=== PATIENT | female | born 1935 | race African-American/Black ===

== ENCOUNTER 2017-11-10 15:38 | Emergency (ER) | payer MEDICARE ==
[2017-11-10 16:05] LABS: ADD MAN DIFF? NO
[2017-11-10 16:09] LABS: BASO # 0.1 x10^3/uL (0.0-0.2); BASO % 1 % (0-3); EOS # 0.1 x10^3/uL (0.0-0.7); EOS % 1 % (0-3); HEMATOCRIT 40.7 % (36.0-47.0); HEMOGLOBIN 13.2 g/dL (12.0-15.5); LYMPH # 2.2 x10^3/uL (1.0-4.8); LYMPH % 26 % (24-48); MEAN CORPUSCULAR HEMOGLOBIN 29 pg (25-35); MEAN CORPUSCULAR HGB CONC 33 g/dL (31-37); MEAN CORPUSCULAR VOLUME 90 fL (79-100); MONO % 11 % (0-9); NEUT # 5.3 x10^3uL (1.8-7.7); NEUT % 61 % (31-73); PLATELET COUNT 192 x10^3/uL (140-400); RED BLOOD COUNT 4.54 x10^6/uL (3.50-5.40); RED CELL DISTRIBUTION WIDTH 14.7 % (11.5-14.5); WHITE BLOOD COUNT 8.7 x10^3/uL (4.0-11.0)
[2017-11-10 16:27] LABS: ANION GAP 8 (6-14); BLOOD UREA NITROGEN 38 mg/dL (7-20); BUN/CREATININE RATIO 35 (6-20); CALCIUM 9.5 mg/dL (8.5-10.1); CARBON DIOXIDE 28 mmol/L (21-32); CHLORIDE 100 mmol/L (98-107); CREATININE 1.1 mg/dL (0.6-1.0); GFR 57.4; GLUCOSE 129 mg/dL (70-99); POTASSIUM 3.8 mmol/L (3.5-5.1); SODIUM 136 mmol/L (136-145)
[2017-11-10] MEDS: cloNIDine HCL 0.1 MG TABLET PO ×2 (16:28)
[2017-11-10 16:32] LABS: TROPONINI < 0.017 ng/mL (0.000-0.055)
[2017-11-10 16:33] LABS: ALBUMIN 3.9 g/dL (3.4-5.0); ALK PHOS 112 U/L (46-116); ALT (SGPT) 27 U/L (14-59); AST (SGOT) 24 U/L (15-37); TOTAL BILIRUBIN 0.4 mg/dL (0.2-1.0); TOTAL PROTEIN 7.9 g/dL (6.4-8.2)
[2017-11-10 16:49] LABS: BILIRUBIN,URINE NEGATIVE (NEG); CLARITY,URINE CLEAR; COLOR,URINE YELLOW; GLUCOSE,URINE NEGATIVE (NEG); NITRITE,URINE NEGATIVE (NEG); PROTEIN,URINE NEGATIVE (NEG-TRACE); UROBILINOGEN,URINE 0.2 mg/dL (0.2 mg/dL)
[2017-11-10 17:12] LABS: BACTERIA,URINE 0 /HPF (0-FEW); RBC,URINE OCC /HPF (0-2); SQUAMOUS EPITHELIAL CELL,UR FEW /LPF; WBC,URINE OCC /HPF (0-4)
== END 2017-11-10 17:59 | disposition home or self-care (01) ==
LOC: ER 15:38
DX: I10 Essential (primary) hypertension (principal); J34.89 Other specified disorders of nose and nasal sinuses; M19.90 Unspecified osteoarthritis, unspecified site; E78.00 Pure hypercholesterolemia, unspecified; Z90.710 Acquired absence of both cervix and uterus; Z88.0 Allergy status to penicillin
CPT/HCPCS: 36415; 80053; 81001; 84484; 85025; 93005; 99285-25

== ENCOUNTER → 2019-05-05 | Outpatient (CLI) | payer BC, MEDICARE ==
[2017-11-10 17:37] VITALS: BP 147/70
[~2019-05-05] MED LIST: AZIT250T PO
--- NOTE | 2019-05-05 11:12 | KCIC ---
Exam performed: X-ray lumbosacral spine. HISTORY: Chronic low back pain and bilateral leg pain. DATE OF SERVICE: 05/05/2019. Comparison made to a x-ray lumbosacral spine from June 16, 2009. FINDINGS: 5 nonrib-bearing vertebral bodies are identified. The vertebral body heights are maintained. There is narrowing of several intervertebral disc levels with mild diffuse osteophytic spurring. There is grade 1 anterolisthesis of L4 over L5, the remainder alignment appears preserved. There is no acute compression fracture. No prevertebral soft tissue swelling is identified. Nonspecific bowel gas pattern. 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 Grade 1 anterolisthesis of L4 over L5 likely degenerative. Electronically signed by: Heather Babin MD (05/05/2019 11:09 AM) [facility]
== END | disposition home or self-care (01) ==
LOC: KCIC 10:21
PROVIDERS: ATTEND Nurse Practitioner Gerontology
DX: M47.26 Other spondylosis with radiculopathy, lumbar region (principal); M51.86 Other intervertebral disc disorders, lumbar region; G89.29 Other chronic pain
CPT/HCPCS: 72100

== ENCOUNTER 2019-05-13 05:05 | Inpatient (IN) | payer BC ==
[~2019-05-13] VITALS: Ht 177.8 cm; Wt 74.8 kg
[2019-05-13] VITALS (9 sets, daily range): BP systolic 114–147; BP diastolic 68–83
[2019-05-13 08:15] LABS: ALBUMIN 3.4 g/dL (3.4-5.0); CALCIUM 9.9 mg/dL (8.5-10.1); CREATININE 1.4 mg/dL (0.6-1.0); DIRECT BILIRUBIN 0.2 mg/dL (0.0-0.2); GFR 43.2; POTASSIUM 3.7 mmol/L (3.5-5.1); TOTAL BILIRUBIN 0.7 mg/dL (0.2-1.0); TOTAL PROTEIN 6.7 g/dL (6.4-8.2)
[2019-05-13] MEDS ORDERED: PIPERACILLIN/TAZOBACTAM 4.5 GM in IV NORMAL SALINE 100ML 100 ML IV ONE (08:15)
[2019-05-13] MEDS ORDERED: ONDANSETRON PF 4 MG/2 ML VIAL. IV ONE (08:15)
[2019-05-13] MEDS ORDERED: IV NORMAL SALINE 500ML BAG 500 ML IV ONE (08:15)
[2019-05-13] MEDS ORDERED: MORPHINE SULFATE 4 MG/ML VIAL. IV ONE (08:15)
[2019-05-13] MEDS ORDERED: fentaNYL PF VIAL 100 MCG/2 ML VIAL IV ONE (08:15)
[2019-05-13] MEDS ORDERED: IV RINGERS,LACTATED 1000ML 1,000 ML IV SCH (08:16)
--- NOTE | 2019-05-13 08:29 | EKG ---
[facility] [address] [place] [address] Test Date: 2019-05-13 Test Time: 05:07:38 Pat Name: MODE SAMUEL Department: Room: Gender: F [employer]: : 1935 Requested By: SHELIA ZAPATA Order Number: [id number] Reading MD: Measurements Intervals [place] Rate: 113 P: 64 MO: 130 QRS: 45 QRSD: 92 T: 62 QT: 320 QTc: 444 Interpretive Statements SINUS TACHYCARDIA VENTRICULAR PREMATURE COMPLEX(ES) LEFT ATRIAL ABNORMALITY INCOMPLETE RIGHT BUNDLE BRANCH BLOCK ABNORMAL ECG No previous ECG available for comparison
[2019-05-13 08:30] LABS: PROTHROMBIN TIME PATIENT 13.7 SEC (11.7-14.0)
[2019-05-13] MEDS ORDERED: ONDANSETRON PF 4 MG/2 ML VIAL. IV PRN (08:30)
[2019-05-13] MEDS ORDERED: LIDOCAINE 1% PF 2 ML VIAL. ID PRN (08:30)
[2019-05-13] MEDS ORDERED: MORPHINE SULFATE 2 MG/ML VIAL. IV PRN (08:30)
[2019-05-13] MEDS ORDERED: HYDROmorphone 2 MG/ML VIAL IV PRN (08:30)
[2019-05-13] MEDS ORDERED: fentaNYL PF VIAL 100 MCG/2 ML VIAL IV PRN ×2 (08:30)
[2019-05-13] MEDS ORDERED: PROCHLORPERAZINE 10 MG/2 ML VIAL. IV PRN (08:30)
[2019-05-13 08:31] LABS: BASO % 0 % (0-3); EOS % 0 % (0-3); HEMATOCRIT 43.3 % (36.0-47.0); HEMOGLOBIN 14.1 g/dL (12.0-15.5); LYMPH # 2.9 x10^3/uL (1.0-4.8); LYMPH % 23 % (24-48); MEAN CORPUSCULAR HEMOGLOBIN 30 pg (25-35); MEAN CORPUSCULAR HGB CONC 33 g/dL (31-37); MEAN CORPUSCULAR VOLUME 91 fL (79-100); MONO # 0.3 x10^3/uL (0.0-1.1); MONO % 2 % (0-9); NEUT # 9.2 x10^3/uL (1.8-7.7); NEUT % 74 % (31-73); PLATELET COUNT 276 x10^3/uL (140-400); RED BLOOD COUNT 4.77 x10^6/uL (3.50-5.40); WHITE BLOOD COUNT 12.4 x10^3/uL (4.0-11.0)
[2019-05-13] MEDS ORDERED: PROPOFOL 20 ML IV ONE (08:38)
[2019-05-13] MEDS ORDERED: fentaNYL PF VIAL 100 MCG/2 ML VIAL ONE (08:38)
[2019-05-13] MEDS ORDERED: ONDANSETRON PF 4 MG/2 ML VIAL. ONE (08:38)
[2019-05-13] MEDS ORDERED: LIDOCAINE 2% PF 5 ML VIAL. ONE (08:38)
[2019-05-13] MEDS ORDERED: DEXAMETHASONE SOD PHOS 4 MG/ML VIAL ONE (08:38)
[2019-05-13] MEDS ORDERED: SUCCINYLCHOLINE 200 MG/10 ML VIAL. ONE (08:39)
[2019-05-13] MEDS ORDERED: ROCURONIUM 100 MG/10 ML VIAL. ONE (08:39)
--- NOTE | 2019-05-13 08:52 | PDOC2 ---
CONSULT Date of Consult Date of Consult DATE: 05/13/19 TIME: 08:47 History of Present Illness Reason for Visit: The patient is an 84 year old female who reported to the ER due to abdominal pain. She has had vague abdominal and back pain for the last 2 weeks. Overnight the pain became severe and started in the chest and radiated down the abdomen. She denies nausea or vomiting. She denies changes in bowel or bladder function. Past Medical History Past Medical History hypertension, thyroid nodule Past Surgical History Past Surgical History hysterectomy, thyroidectomy Social History Quit ALCOHOL: none Current Medications Current Medications Current Medications Fentanyl Citrate (Fentanyl 2ml Vial) 50 mcg 1X ONCE IV ; Start 05/13/19 at 08:15; Stop 05/13/19 at 08:16; Status DC Ondansetron HCl (Zofran) 4 mg 1X ONCE IV ; Start 05/13/19 at 08:15; Stop 05/13/19 at 08:16; Status DC Sodium Chloride 500 ml @ 500 mls/hr 1X ONCE IV ; Start 05/13/19 at 08:15; Stop 05/13/19 at 09:14 Morphine Sulfate (Morphine Sulfate) 4 mg 1X ONCE IV ; Start 05/13/19 at 08:15; Stop 05/13/19 at 08:16; Status DC Piperacillin Sod/ Tazobactam Sod 4.5 gm/Sodium Chloride 100 ml @ 200 mls/hr 1X ONCE IV ; Start 05/13/19 at 08:15; Stop 05/13/19 at 08:44 Ondansetron HCl (Zofran) 4 mg PRN Q6HRS PRN IV NAUSEA/VOMITING; Start 05/13/19 at 08:30; Stop 05/14/19 at 08:29 Fentanyl Citrate (Fentanyl 2ml Vial) 25 mcg PRN Q5MIN PRN IV MILD PAIN 1-3; Start 05/13/19 at 08:30; Stop 05/14/19 at 08:29 Fentanyl Citrate (Fentanyl 2ml Vial) 50 mcg PRN Q5MIN PRN IV MODERATE TO SEVERE PAIN; Start 05/13/19 at 08:30; Stop 05/14/19 at 08:29 Morphine Sulfate (Morphine Sulfate) 1 mg PRN Q10MIN PRN IV SEVERE PAIN 7-10; Start 05/13/19 at 08:30; Stop 05/14/19 at 08:29 Ringer's Solution 1,000 ml @ 30 mls/hr Q24H IV ; Start 05/13/19 at 08:16; Stop 05/13/19 at 20:15 Lidocaine HCl (Xylocaine-Mpf 1% 2ml Vial) 2 ml 1X PRN PRN ID IV START; Start 05/13/19 at 08:30; Stop 05/14/19 at 08:29 Hydromorphone HCl (Dilaudid) 0.5 mg PRN Q10MIN PRN IV SEV PAIN, Second choice; Start 05/13/19 at 08:30; Stop 05/14/19 at 08:29 Prochlorperazine Edisylate (Compazine) 5 mg PACU PRN PRN IV NAUSEA, MRX1; Start 05/13/19 at 08:30; Stop 05/14/19 at 08:29 Ondansetron HCl (Zofran) 4 mg STK-MED ONCE .ROUTE ; Start 05/13/19 at 08:38; Stop 05/13/19 at 08:38; Status DC Propofol 20 ml @ As Directed STK-MED ONCE IV ; Start 05/13/19 at 08:38; Stop 05/13/19 at 08:38; Status DC Lidocaine HCl (Lidocaine Pf 2% Vial) 5 ml STK-MED ONCE .ROUTE ; Start 05/13/19 at 08:38; Stop 05/13/19 at 08:38; Status DC Dexamethasone Sodium Phosphate (Decadron) 4 mg STK-MED ONCE .ROUTE ; Start 05/13/19 at 08:38; Stop 05/13/19 at 08:38; Status DC Fentanyl Citrate (Fentanyl 2ml Vial) 100 mcg STK-MED ONCE .ROUTE ; Start 05/13/19 at 08:38; Stop 05/13/19 at 08:38; Status DC Rocuronium [place] (Zemuron) 100 mg STK-MED ONCE .ROUTE ; Start 05/13/19 at 08:39; Stop 05/13/19 at 08:39; Status DC Succinylcholine Chloride (Anectine) 200 mg STK-MED ONCE .ROUTE ; Start 05/13/19 at 08:39; Stop 05/13/19 at 08:39; Status DC Active Scripts Active Zithromax (Azithromycin) 250 Mg Tablet 1 Pkg PO UD Allergies Allergies: Coded Allergies: Penicillins (Verified Allergy, Intermediate, 05/13/19) PT DOESN'T KNOW REACTION, FROM CHILDHOOD ROS General: No: Chills, Night Sweats, Fatigue, Malaise, Appetite, Other PSYCHOLOGICAL ROS: No: Anxiety, Behavioral Disorder, Concentration difficultie, Decreased libido, Depression, Disorientation, Hallucinations, Hostility, Irritablity, Memory difficulties, Mood Swings, Obsessive thoughts, Physical abuse, Sexual abuse, Sleep disturbances, Suicidal ideation, Other Eyes: No Blurry vision, No Decreased vision, No Double vision, No Dry eyes, No Excessive tearing, No Eye Pain, No Itchy Eyes, No Loss of vision, No Photophobia, No Scotomata, No Uses contacts, No Uses glasses, No Other HEENT: No: Heacaches, Visual Changes, Hearing change, Nasal congestion, Nasal discharge, Oral lesions, Sinus pain, Sore Throat, Epistaxis, Sneezing, Snoring, Tinnitus, Vertigo, Vocal changes, Other ALLERGY AND IMMUNOLOGY: No: Hives, Insect Bite Sensitivity, Itchy/Watery Eyes, Nasal Congestion, Post Nasal Drip, Seasonal Allergies, Other Hematological and Lymphatic: No: Bleeding Problems, Blood Clots, Blood Transfusions, Brusing, Night Sweats, Pallor, Swollen Lymph Nodes, Other ENDOCRINE: No: Breast Changes, Galactorrhea, Hair Pattern Changes, Hot Flashes, Malaise/lethargy, Mood Swings, Palpitations, Polydipsia/polyuria, Skin Changes, Temperature Intolerance, Unexpected Weight Changes, Other Respiratory: No: Cough, Hemoptysis, Orthopnea, Pleuritic Pain, Shortness of breath, SOB with excertion, Sputum Changes, Stridor, Tachypnea, Wheezing, Other Cardiovascular: yes Chest Pain Gastrointestinal: Yes Abdominal Pain Genitourinary: No Dysuria, No Frequency, No Incontinence, No Hematuria, No Retention, No Discharge, No Urgency, No Pain, No Flank Pain, No Other, No , No , No , No , No , No , No Musculoskeletal: No Gait Disturbance, No Joint Pain, No Joint Stiffness, No Joint Swelling, No Muscle Pain, No Muscular Weakness, No Pain In:, No Swelling In:, No Other Neurological: No Behavorial Changes, No Bowel/Bladder ControlChng, No Confusion, No Dizziness, No Gait Disturbance, No Headaches, No Impaired Coord/balance, No Memory Loss, No Numbness/Tingling, No Seizures, No Speech Problems, No Tremors, No Visual Changes, No Weakness, No Other Skin: No Dry Skin, No Eczema, No Hair Changes, No Lumps, No Mole Changes, No Mottling, No Nail Changes, No Pruritus, No Rash, No Skin Lesion Changes, No Other, No Acne Physical Exam General: Alert, moderate distress HEENT: Atraumatic Lungs: Clear to auscultation Heart: Regular rate Abdomen: Soft (tender diffusely, peritoneal signs present) Extremities: No clubbing, No cyanosis Skin: No rashes Neuro: Normal speech Psych/Mental Status: Mental status NL Labs Labs Laboratory Tests Test 05/13/19 05:15 05/13/19 07:10 White Blood Count 12.4 x10^3/uL (4.0-11.0) Red Blood Count 4.77 x10^6/uL (3.50-5.40) Hemoglobin 14.1 g/dL (12.0-15.5) Hematocrit 43.3 % (36.0-47.0) Mean Corpuscular Volume 91 fL (79-100) Mean Corpuscular Hemoglobin 30 pg (25-35) Mean Corpuscular Hemoglobin Concent 33 g/dL (31-37) Red Cell Distribution Width 15.0 % (11.5-14.5) Platelet Count 276 x10^3/uL (140-400) Neutrophils (%) (Auto) 74 % (31-73) Lymphocytes (%) (Auto) 23 % (24-48) Monocytes (%) (Auto) 2 % (0-9) Eosinophils (%) (Auto) 0 % (0-3) Basophils (%) (Auto) 0 % (0-3) Neutrophils # (Auto) 9.2 x10^3/uL (1.8-7.7) Lymphocytes # (Auto) 2.9 x10^3/uL (1.0-4.8) Monocytes # (Auto) 0.3 x10^3/uL (0.0-1.1) Eosinophils # (Auto) 0.0 x10^3/uL (0.0-0.7) Basophils # (Auto) 0.0 x10^3/uL (0.0-0.2) Prothrombin Time 13.7 SEC (11.7-14.0) Prothromb Time International Ratio 1.1 (0.8-1.1) Activated Partial Thromboplast Time 20 SEC (24-38) Sodium Level 137 mmol/L (136-145) Potassium Level 3.7 mmol/L (3.5-5.1) Chloride Level 99 mmol/L (98-107) Carbon Dioxide Level 28 mmol/L (21-32) Anion Gap 10 (6-14) Blood Urea Nitrogen 30 mg/dL (7-20) Creatinine 1.4 mg/dL (0.6-1.0) Estimated GFR (Cockcroft-Gault) 43.2 Glucose Level 208 mg/dL (70-99) Calcium Level 9.9 mg/dL (8.5-10.1) Total Bilirubin 0.7 mg/dL (0.2-1.0) Direct Bilirubin 0.2 mg/dL (0.0-0.2) Aspartate Amino Transf (AST/SGOT) 19 U/L (15-37) Alanine Aminotransferase (ALT/SGPT) 29 U/L (14-59) Alkaline Phosphatase 69 U/L (46-116) Troponin I Quantitative < 0.017 ng/mL (0.000-0.055) ZK-Pii-M-Type Natriuretic Peptide 336 pg/mL (0-449) Total Protein 6.7 g/dL (6.4-8.2) Albumin 3.4 g/dL (3.4-5.0) Lipase 382 U/L (73-393) Lactic Acid Level 2.7 mmol/L (0.4-2.0) Laboratory Tests Test 05/13/19 05:15 05/13/19 07:10 White Blood Count 12.4 x10^3/uL (4.0-11.0) Red Blood Count 4.77 x10^6/uL (3.50-5.40) Hemoglobin 14.1 g/dL (12.0-15.5) Hematocrit 43.3 % (36.0-47.0) Mean Corpuscular Volume 91 fL (79-100) Mean Corpuscular Hemoglobin 30 pg (25-35) Mean Corpuscular Hemoglobin Concent 33 g/dL (31-37) Red Cell Distribution Width 15.0 % (11.5-14.5) Platelet Count 276 x10^3/uL (140-400) Neutrophils (%) (Auto) 74 % (31-73) Lymphocytes (%) (Auto) 23 % (24-48) Monocytes (%) (Auto) 2 % (0-9) Eosinophils (%) (Auto) 0 % (0-3) Basophils (%) (Auto) 0 % (0-3) Neutrophils # (Auto) 9.2 x10^3/uL (1.8-7.7) Lymphocytes # (Auto) 2.9 x10^3/uL (1.0-4.8) Monocytes # (Auto) 0.3 x10^3/uL (0.0-1.1) Eosinophils # (Auto) 0.0 x10^3/uL (0.0-0.7) Basophils # (Auto) 0.0 x10^3/uL (0.0-0.2) Prothrombin Time 13.7 SEC (11.7-14.0) Prothromb Time International Ratio 1.1 (0.8-1.1) Activated Partial Thromboplast Time 20 SEC (24-38) Sodium Level 137 mmol/L (136-145) Potassium Level 3.7 mmol/L (3.5-5.1) Chloride Level 99 mmol/L (98-107) Carbon Dioxide Level 28 mmol/L (21-32) Anion Gap 10 (6-14) Blood Urea Nitrogen 30 mg/dL (7-20) Creatinine 1.4 mg/dL (0.6-1.0) Estimated GFR (Cockcroft-Gault) 43.2 Glucose Level 208 mg/dL (70-99) Calcium Level 9.9 mg/dL (8.5-10.1) Total Bilirubin 0.7 mg/dL (0.2-1.0) Direct Bilirubin 0.2 mg/dL (0.0-0.2) Aspartate Amino Transf (AST/SGOT) 19 U/L (15-37) Alanine Aminotransferase (ALT/SGPT) 29 U/L (14-59) Alkaline Phosphatase 69 U/L (46-116) Troponin I Quantitative < 0.017 ng/mL (0.000-0.055) BR-Auq-N-Type Natriuretic Peptide 336 pg/mL (0-449) Total Protein 6.7 g/dL (6.4-8.2) Albumin 3.4 g/dL (3.4-5.0) Lipase 382 U/L (73-393) Lactic Acid Level 2.7 mmol/L (0.4-2.0) Assessment/Plan Assessment/Plan 84 year old female with abdominal pain, peritoneal signs, pneumoperitoneum on CT scan. Recommend operative intervention. I reviewed the details of surgery with the patient and her daughter including the risks. They understand and would like to proceed. VIDYA BEJARANO MD May 13, 2019 08:52
[2019-05-13] MEDS ORDERED: HYDROCORTISONE SOD SUCC/PF 100 MG/2 ML VIAL. ONE (08:55)
--- NOTE | 2019-05-13 09:02 | PHYS DOC ---
Past Medical History Past Medical History: Arthritis, High Cholesterol, Hypertension Past Surgical History: Hysterectomy, Other Additional Past Surgical Histo: THYROID Alcohol Use: None Drug Use: None Adult General Chief Complaint Chief Complaint: ABDOMINAL PAIN HPI HPI Patient is a 84 year old -[place] female presents with intermittent chest/back pain for 2 weeks presents with severe worsening of chest pain overnight now radiating to her abdomen. Denies shortness breath, fevers chills, nausea vomiting and sweats. Pain is rated moderate to severe respiratory palpation, movement. Exam, patient has a distended abdomen with mild diffuse tenderness. Patient states she has not had a bowel movement been able to pass gas for at least several hours. Remote history of hysterectomy. Denies further surgical complaints. [] Review of Systems Review of Systems Review of symptoms as per history of present illness. All other review symptoms are negative. All other systems were reviewed and found to be within normal limits, except as documented in this note. Current Medications Current Medications Current Medications Medications (Trade) Dose Ordered Sig/Simi Start Time Stop Time Status Last Admin Dose Admin Dexamethasone Sodium Phosphate (Decadron) 4 mg STK-MED ONCE 05/13/19 08:38 05/13/19 08:38 DC Fentanyl Citrate (Fentanyl 2ml Vial) 100 mcg STK-MED ONCE 05/13/19 08:38 05/13/19 08:38 DC Hydrocortisone Sodium Succinate (Solu-CORTEF) 100 mg STK-MED ONCE 05/13/19 08:55 05/13/19 08:55 DC Hydromorphone HCl (Dilaudid) 0.5 mg PRN Q10MIN PRN 05/13/19 08:30 05/14/19 08:29 Lidocaine HCl (Lidocaine Pf 2% Vial) 5 ml STK-MED ONCE 05/13/19 08:38 05/13/19 08:38 DC Lidocaine HCl (Xylocaine-Mpf 1% 2ml Vial) 2 ml 1X PRN PRN 05/13/19 08:30 05/14/19 08:29 Morphine Sulfate (Morphine Sulfate) 1 mg PRN Q10MIN PRN 05/13/19 08:30 05/14/19 08:29 Ondansetron HCl (Zofran) 4 mg STK-MED ONCE 05/13/19 08:38 05/13/19 08:38 DC Piperacillin Sod/ Tazobactam Sod 4.5 gm/Sodium Chloride 100 ml @ 200 mls/hr 1X ONCE 05/13/19 08:15 05/13/19 08:44 DC Prochlorperazine Edisylate (Compazine) 5 mg PACU PRN PRN 05/13/19 08:30 05/14/19 08:29 Propofol 20 ml @ As Directed STK-MED ONCE 05/13/19 08:38 05/13/19 08:38 DC Ringer's Solution 1,000 ml @ 30 mls/hr Q24H 05/13/19 08:16 05/13/19 20:15 Rocuronium [place] (Zemuron) 100 mg STK-MED ONCE 05/13/19 08:39 05/13/19 08:39 DC Sodium Chloride 500 ml @ 500 mls/hr 1X ONCE 05/13/19 08:15 05/13/19 09:14 Succinylcholine Chloride (Anectine) 200 mg STK-MED ONCE 05/13/19 08:39 05/13/19 08:39 DC Allergies Allergies Allergies Coded Allergies Type Severity Reaction Last Updated Verified Penicillins Allergy Intermediate 05/13/19 Yes Physical Exam Physical Exam Constitutional: Well developed, well nourished, moderate distress secondary to pain.. [] HENT: Normocephalic, atraumatic, bilateral external ears normal, oropharynx moist, nose normal. [] Eyes: PERRLA, EOMI, conjunctiva normal, no discharge. [] Neck: Normal range of motion, no tenderness, supple, no stridor. [] Cardiovascular:Heart rate regular rhythm, no murmur [] Lungs & Thorax: Bilateral breath sounds clear to auscultation [] Abdomen: Bowel sounds normal, soft, dated, quite bowel sounds, diffuse abdominal pain, tenderness.[] Skin: Warm, dry, no erythema, no rash. [] Back: No tenderness, no CVA tenderness. [] Extremities: No tenderness, no cyanosis, no clubbing, ROM intact, no edema. [] Neurologic: Alert and oriented X 3, normal motor function, normal sensory function, no focal deficits noted. [] Psychologic: Affect normal, judgement normal, mood normal. [] Current Patient Data Lab Values Laboratory Tests Test 05/13/19 05:15 05/13/19 07:10 White Blood Count 12.4 x10^3/uL (4.0-11.0) H Red Blood Count 4.77 x10^6/uL (3.50-5.40) Hemoglobin 14.1 g/dL (12.0-15.5) Hematocrit 43.3 % (36.0-47.0) Mean Corpuscular Volume 91 fL (79-100) Mean Corpuscular Hemoglobin 30 pg (25-35) Mean Corpuscular Hemoglobin Concent 33 g/dL (31-37) Red Cell Distribution Width 15.0 % (11.5-14.5) H Platelet Count 276 x10^3/uL (140-400) Neutrophils (%) (Auto) 74 % (31-73) H Lymphocytes (%) (Auto) 23 % (24-48) L Monocytes (%) (Auto) 2 % (0-9) Eosinophils (%) (Auto) 0 % (0-3) Basophils (%) (Auto) 0 % (0-3) Neutrophils # (Auto) 9.2 x10^3/uL (1.8-7.7) H Lymphocytes # (Auto) 2.9 x10^3/uL (1.0-4.8) Monocytes # (Auto) 0.3 x10^3/uL (0.0-1.1) Eosinophils # (Auto) 0.0 x10^3/uL (0.0-0.7) Basophils # (Auto) 0.0 x10^3/uL (0.0-0.2) Prothrombin Time 13.7 SEC (11.7-14.0) Prothrombin Time INR 1.1 (0.8-1.1) Activated Partial Thromboplast Time 20 SEC (24-38) L Sodium Level 137 mmol/L (136-145) Potassium Level 3.7 mmol/L (3.5-5.1) Chloride Level 99 mmol/L (98-107) Carbon Dioxide Level 28 mmol/L (21-32) Anion Gap 10 (6-14) Blood Urea Nitrogen 30 mg/dL (7-20) H Creatinine 1.4 mg/dL (0.6-1.0) H Estimated GFR (Cockcroft-Gault) 43.2 Glucose Level 208 mg/dL (70-99) H Calcium Level 9.9 mg/dL (8.5-10.1) Total Bilirubin 0.7 mg/dL (0.2-1.0) Direct Bilirubin 0.2 mg/dL (0.0-0.2) Aspartate Amino Transferase (AST) 19 U/L (15-37) Alanine Aminotransferase (ALT) 29 U/L (14-59) Alkaline Phosphatase 69 U/L (46-116) Troponin I Quantitative < 0.017 ng/mL (0.000-0.055) YH-Xsw-H-Type Natriuretic Peptide 336 pg/mL (0-449) Total Protein 6.7 g/dL (6.4-8.2) Albumin 3.4 g/dL (3.4-5.0) Lipase 382 U/L (73-393) Lactic Acid Level 2.7 mmol/L (0.4-2.0) H Laboratory Tests 05/13/19 05:15 Laboratory Tests 05/13/19 05:15 EKG EKG [EKG: Reviewed] Radiology/Procedures Radiology/Procedures [CT chest abdomen pelvis: Diffuse pneumoperitoneum per radiology report.] Course & Med Decision Making Course & Med Decision Making Pertinent Labs and Imaging studies reviewed. (See chart for details) [Patient given repeat pain medications, IV fluids and empiric antibiotics. Dr. Falcon on-call for general surgery notified of surgical consult. Dr. Nohemi Perkins agrees to admit.] Dragon Disclaimer Dragon Disclaimer This electronic medical record was generated, in whole or in part, using a voice recognition dictation system. Departure Departure Impression: Primary Impression: Abdominal pain Additional Impression: PP (pneumoperitoneum) Disposition: 09 ADMITTED INPATIENT Admitting Physician: Milton Perkins Condition: STABLE Referrals: DEMETRIUS BRADSHAW MD (PCP) Problem Qualifiers BENNYSHELIA PHAN May 13, 2019 09:02
[2019-05-13] MEDS ORDERED: METHYLENE BLUE 1% 10 ML VIAL. ONE (09:12)
[2019-05-13] MEDS ORDERED: PHENYLEPHRINE in 0.9% NACL PF 1 MG/10 ML SYRINGE. IV ONE (09:19)
[2019-05-13] MEDS ORDERED: PHENYLEPHRINE 10 MG/ML VIAL. ONE (09:19)
[2019-05-13] MEDS ORDERED: ePHEDrine PF IN SALINE 50 MG/10 ML SYRINGE. IV ONE (09:19)
[2019-05-13] MEDS ORDERED: BUPIVACAINE MPF 0.5% 30 ML VIAL. ONE (09:40)
[2019-05-13] MEDS ORDERED: BUPIVACAINE-EPI 0.25%-1:200000 MPF 30 ML VIAL. ONE (09:41)
--- NOTE | 2019-05-13 09:41 | RAD ---
Examination: CT CHEST ABDOMEN PELVIS WO History: Severe chest pain Comparison/Correlation: None Findings: Axial images of chest, abdomen, and pelvis were obtained without contrast. Sagittal and coronal reformatted images were provided. 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 Centrilobular emphysema noted. No infiltrate or pleural effusion. No pneumothorax. No pericardial effusion. Thoracic aortic morphology is grossly unremarkable. No enlarged thoracic lymph nodes. Bony thorax is unremarkable for the patient's age. No significant degenerative change of the thoracic spine. Small hiatal hernia is present. Small amount of right perihepatic ascites noted. Spleen, pancreas, and adrenal glands are normal. The paracolic gutter fluid bilaterally is present greater on the right. Extraluminal gas is noted in the nondependent aspect of the upper abdomen. Diverticulosis of the colon is evident. Moderate to large quantity of pelvic free fluid noted. Circumferential wall thickening of left lower quadrant small bowel is present. No inflammatory change about the cecum noted. No bowel obstruction. Calcific involvement of the abdominal aorta and iliac arteries noted. Mild left renal atrophy is present. Left renal superior pole cyst noted. Urinary bladder is unremarkable. Umbilical hernia contains omental fat and lack gas. Moderate L5/S1 disc space narrowing is present. Slight anterolisthesis of L4 relation L5 is present and of almost grade 1 extent. Concentric disc bulge is noted at L3-4 and L4-5 with significant spinal canal stenoses. Marked facet joint degenerative remodeling and hypertrophy bilaterally involves the lumbar spine. Impression: No infiltrate or pneumothorax. Small hiatal hernia. Extraluminal gas. Ascites within the abdomen and pelvis. Gas within the herniated fat within an umbilical hernia. Findings of concern for bowel perforation. Diverticulosis. Discussed with Dr. Ann of the emergency Department on 05/13/2019 at 9:37 AM. PQRS Compliance Statement: One or more of the following individualized dose reduction techniques were utilized for this examination: 1. Automated exposure control 2. Adjustment of the mA and/or kV according to patient size 3. Use of iterative reconstruction technique Electronically signed by: Alex Walter MD (05/13/2019 9:38 AM) [facility]
--- NOTE | 2019-05-13 09:43 | RAD ---
CHEST AP ONLY Clinical Indication: Chest pain Comparison: None. Findings: Portable upright frontal view chest was obtained. The cardiomediastinal silhouette is normal. Lungs are clear. There is no pneumothorax. No pleural effusion is appreciated. No acute bone abnormality. Curvilinear lucency in the epigastric region noted. IMPRESSION: No acute cardiopulmonary process. Curvilinear lucency in the epigastric region noted. This likely corresponds with known extraluminal gas seen on subsequently performed CT exam of the chest, abdomen, and pelvis. Electronically signed by: Alex Walter MD (05/13/2019 9:41 AM) [facility]
[2019-05-13] MEDS ORDERED: GLYCOPYRROLATE 1 MG/5 ML VIAL. ONE (09:53)
[2019-05-13] MEDS ORDERED: NEOSTIGMINE 10 MG/10 ML VIAL. ONE (09:53)
--- NOTE | 2019-05-13 11:09 | PDOC4 ---
Operative Note Operative Note Operative Note: Preoperative Diagnosis: Perforated viscus Postoperative Diagnosis: Perforated gastric ulcer (pyloric channel) Procedure: Laparoscopic repair of perforated gastric ulcer with omental patch Surgeon: Ezekiel Acoustical Installer: Della WINN Anesthesia: Gen. EBL: 10 mL Specimen: None Drains: 19 [place] DRU drain to right upper quadrant Complications: None Indication: The patient is an 84-year-old female presented with acute abdominal pain. Her evaluation is consistent with perforated viscus. We recommend surgical intervention with the plan for laparoscopy. She understands the potential of needing a full laparotomy, bowel resection, and even ostomy. The details and risks of surgery were discussed. The risks include bleeding, infection, visceral injury, anastomotic leak, pain, anesthetic risk, potential need for additional surgery or procedure. She understands and would like to proceed. Description: The patient was taken to the operating room and placed supine on the operating table. Gen. anesthesia was performed. The abdomen was prepped with ChloraPrep and draped in a standard surgical manner. A small right upper quadrant incision was made through which a visualized 5 mm trocar was inserted. A pneumoperitoneum was created and the laparoscope introduced. Initial inspection showed significant diffuse peritonitis with free turbid fluid present in the right upper quadrant. In the lower midabdomen another 5 mm trocar was inserted. With a Harmonic Scalpel some omental adhesions were freed off the abdominal wall likely due to prior surgery. An 11 mm trocar was placed in the left upper quadrant. We directed our attention to the right upper quadrant and were able to identify a perforated ulcer in the distal stomach near the pyloric channel. There were some adhesions to the gallbladder which were freed up. The perforated ulcer was closed using interrupted 2-0 Vicryl sutures placed laparoscopically. The tails of the sutures were then used for an omental patch. A vascularized pedicle of omentum was placed in between the sutures and they were tied down securing the patch. Over 200 mL of methylene blue were then instilled into the stomach through an NG tube. There was no evidence of any extravasation and the repair appeared intact. The entire abdominal cavity was then irrigated with efforts made to clean up all contamination. In 19 Ugandan round Arnold drain was left in the right upper quadrant with an exit at the right upper port incision. This was secured to the skin with 2-0 silk. The left upper quadrant port was removed and fascia closed with 0 Vicryl using an Endo Close. The fascia was infiltrated with half percent Marcaine. The remaining ports were removed and the pneumoperitoneum was relieved. Skin at all incisions was closed with 4-0 Monocryl. Steri-Strips and dressings were applied. The patient tolerated the procedure well and was sent to the recovery room in stable condition. At the end of the case all counts were correct. VIDYA BEJARANO MD May 13, 2019 11:09
[2019-05-13] MEDS ORDERED: LABETALOL 20 MG/4 ML DISP.SYRIN. IVP PRN (11:15)
[2019-05-13] MEDS ORDERED: HYDROmorphone 2 MG/ML VIAL IVP PRN (11:15)
--- NOTE | 2019-05-13 17:00 | PDOC1 ---
History and Physical Date of Admission Date of Admission 05/13/19 Identification/Chief Complaint Chief Complaint Abdominal pain Source Source: Patient History of Present Illness History of Present Illness Pt states that she woke up this morning in excruciating pain. Called her daughter around 3am. Pain was initially in her chest, then moved into her stomach. Daughter called EMS. Pt brought to the ER and found to have pneumoperitoneum. Pt says that she has had abdominal pain for a while, but never this severe. Was not eating very much over the last week and was having issues with constipation due to this. Pt seen about a week ago in the clinic and was started on prednisone taper for arthritis. Pt is now s/p surgery and is feeling much better. Past Medical History Cardiovascular: HTN, Hyperlipidemia Pulmonary: No pertinent hx GI: GERD Heme/Onc: No pertinent hx Hepatobiliary: No pertinent hx Psych: Anxiety Rheumatologic: No pertinent hx Infectious disease: No pertinent hx ENT: No pertinent hx Renal/: No pertinent hx Endocrine: No pertinent hx Dermatology: No pertinent hx Past Surgical History Past Surgical History: Hysterectomy, Other (thyroidectomy) Family History Family History: No Significant Social History Smoke: Quit ALCOHOL: none Drugs: None Current Problem List Problem List Problems Medical Problems: (1) Abdominal pain Status: Acute (2) PP (pneumoperitoneum) Status: Acute Current Medications Current Medications Current Medications Medications (Trade) Dose Ordered Sig/Simi Start Time Stop Time Status Last Admin Dose Admin Bupivacaine HCl (Sensorcaine Mpf 0.5%) 30 ml STK-MED ONCE 05/13/19 09:40 05/13/19 10:40 DC 05/13/19 10:50 30 ML Bupivacaine HCl/ Epinephrine Bitart (Sensorcaine-Epi 0.25%-1:[id number] Mpf) 30 ml STK-MED ONCE 05/13/19 09:41 05/13/19 10:41 DC Dexamethasone Sodium Phosphate (Decadron) 4 mg STK-MED ONCE 05/13/19 08:38 05/13/19 08:38 DC Ephedrine Sulfate (ePHEDrine PF IN SALINE SYRINGE) 50 mg STK-MED ONCE 05/13/19 09:19 05/13/19 09:20 DC Fentanyl Citrate (Fentanyl 2ml Vial) 100 mcg STK-MED ONCE 05/13/19 08:38 05/13/19 08:38 DC Glycopyrrolate (Robinul) 1 mg STK-MED ONCE 05/13/19 09:53 05/13/19 09:54 DC Hydrocortisone Sodium Succinate (Solu-CORTEF) 100 mg STK-MED ONCE 05/13/19 08:55 05/13/19 08:55 DC Hydromorphone HCl (Dilaudid) 0.5 mg PRN Q4HRS PRN 05/13/19 11:15 Labetalol HCl (Normodyne Iv Push) 10 mg PRN Q15MIN PRN 05/13/19 11:15 05/14/19 11:14 05/13/19 12:24 10 MG Lidocaine HCl (Lidocaine Pf 2% Vial) 5 ml STK-MED ONCE 05/13/19 08:38 05/13/19 08:38 DC Lidocaine HCl (Xylocaine-Mpf 1% 2ml Vial) 2 ml 1X PRN PRN 05/13/19 08:30 05/14/19 08:29 Methylene Blue (Methylene Blue) 1 ml STK-MED ONCE 05/13/19 09:12 05/13/19 10:12 DC Morphine Sulfate (Morphine Sulfate) 1 mg PRN Q10MIN PRN 05/13/19 08:30 05/14/19 08:29 Neostigmine Methylsulfate (Bloxiverz) 10 mg STK-MED ONCE 05/13/19 09:53 05/13/19 09:54 DC Ondansetron HCl (Zofran) 4 mg STK-MED ONCE 05/13/19 08:38 05/13/19 08:38 DC Phenylephrine HCl (Danielito-Synephrine Inj) 10 mg STK-MED ONCE 05/13/19 09:19 05/13/19 09:20 DC Phenylephrine HCl (PHENYLEPHRINE in 0.9% NACL PF) 1 mg STK-MED ONCE 05/13/19 09:19 05/13/19 09:20 DC Piperacillin Sod/ Tazobactam Sod 4.5 gm/Sodium Chloride 100 ml @ 200 mls/hr 1X ONCE 05/13/19 08:15 05/13/19 08:44 DC Prochlorperazine Edisylate (Compazine) 5 mg PACU PRN PRN 05/13/19 08:30 05/14/19 08:29 Propofol 20 ml @ As Directed STK-MED ONCE 05/13/19 08:38 05/13/19 08:38 DC Ringer's Solution 1,000 ml @ 30 mls/hr Q24H 05/13/19 08:16 05/13/19 20:15 Rocuronium [place] (Zemuron) 100 mg STK-MED ONCE 05/13/19 08:39 05/13/19 08:39 DC Sodium Chloride 500 ml @ 500 mls/hr 1X ONCE 05/13/19 08:15 05/13/19 09:14 DC Succinylcholine Chloride (Anectine) 200 mg STK-MED ONCE 05/13/19 08:39 05/13/19 08:39 DC Allergies Allergies Allergies Coded Allergies Type Severity Reaction Last Updated Verified Penicillins Allergy Intermediate 05/13/19 Yes ROS Review of System CONSTITUTIONAL: No fever, always cold EYES: No recent changes SKIN: No rash or itching CARDIOVASCULAR: No syncope, palpitations, or edema, +CP this morning that has resolved RESPIRATORY: No SOB, +cough GASTROINTESTINAL: No nausea, vomiting, See HPI NEUROLOGICAL: No headaches or weakness ENDOCRINE: No cold or heat intolerance GENITOURINARY: No urgency or frequency of urination MUSCULOSKELETAL: +back pain LYMPHATICS: No enlarged lymph nodes PSYCHIATRIC: No anxiety or depression Physical Exam Physical Exam GEN.: No apparent distress. Alert and oriented. HEENT: Head is normocephalic, atraumatic, NG in place NECK: Supple. Healed scar inferior aspect of neck LUNGS: Clear to auscultation. HEART: RRR, S1, S2 present. Peripheral pulses intact ABDOMEN: Soft, very tender. Incisions covered, dressings C/D/I. Decreased bowel sounds throughout EXTREMITIES: Without any cyanosis. NEUROLOGIC: Normal speech, normal tone PSYCHIATRIC: Normal affect, normal mood. SKIN: No ulcerations Vitals Vitals Vital Signs Date Time Temp Pulse Resp B/P (MAP) Pulse Ox O2 Delivery O2 Flow Rate FiO2 05/13/19 12:24 113 214/106 05/13/19 12:20 98.6 20 97 Room Air 98.6 05/13/19 11:46 10 Labs Labs Laboratory Tests Test 05/13/19 05:15 05/13/19 07:10 05/13/19 14:40 White Blood Count 12.4 x10^3/uL (4.0-11.0) Red Blood Count 4.77 x10^6/uL (3.50-5.40) Hemoglobin 14.1 g/dL (12.0-15.5) Hematocrit 43.3 % (36.0-47.0) Mean Corpuscular Volume 91 fL (79-100) Mean Corpuscular Hemoglobin 30 pg (25-35) Mean Corpuscular Hemoglobin Concent 33 g/dL (31-37) Red Cell Distribution Width 15.0 % (11.5-14.5) Platelet Count 276 x10^3/uL (140-400) Neutrophils (%) (Auto) 74 % (31-73) Lymphocytes (%) (Auto) 23 % (24-48) Monocytes (%) (Auto) 2 % (0-9) Eosinophils (%) (Auto) 0 % (0-3) Basophils (%) (Auto) 0 % (0-3) Neutrophils # (Auto) 9.2 x10^3/uL (1.8-7.7) Lymphocytes # (Auto) 2.9 x10^3/uL (1.0-4.8) Monocytes # (Auto) 0.3 x10^3/uL (0.0-1.1) Eosinophils # (Auto) 0.0 x10^3/uL (0.0-0.7) Basophils # (Auto) 0.0 x10^3/uL (0.0-0.2) Prothrombin Time 13.7 SEC (11.7-14.0) Prothromb Time International Ratio 1.1 (0.8-1.1) Activated Partial Thromboplast Time 20 SEC (24-38) Sodium Level 137 mmol/L (136-145) Potassium Level 3.7 mmol/L (3.5-5.1) Chloride Level 99 mmol/L (98-107) Carbon Dioxide Level 28 mmol/L (21-32) Anion Gap 10 (6-14) Blood Urea Nitrogen 30 mg/dL (7-20) Creatinine 1.4 mg/dL (0.6-1.0) Estimated GFR (Cockcroft-Gault) 43.2 Glucose Level 208 mg/dL (70-99) Calcium Level 9.9 mg/dL (8.5-10.1) Total Bilirubin 0.7 mg/dL (0.2-1.0) Direct Bilirubin 0.2 mg/dL (0.0-0.2) Aspartate Amino Transf (AST/SGOT) 19 U/L (15-37) Alanine Aminotransferase (ALT/SGPT) 29 U/L (14-59) Alkaline Phosphatase 69 U/L (46-116) Troponin I Quantitative < 0.017 ng/mL (0.000-0.055) UR-Hhf-J-Type Natriuretic Peptide 336 pg/mL (0-449) Total Protein 6.7 g/dL (6.4-8.2) Albumin 3.4 g/dL (3.4-5.0) Lipase 382 U/L (73-393) Lactic Acid Level 2.7 mmol/L (0.4-2.0) 2.4 mmol/L (0.4-2.0) Laboratory Tests Test 05/13/19 05:15 05/13/19 07:10 05/13/19 14:40 White Blood Count 12.4 x10^3/uL (4.0-11.0) Red Blood Count 4.77 x10^6/uL (3.50-5.40) Hemoglobin 14.1 g/dL (12.0-15.5) Hematocrit 43.3 % (36.0-47.0) Mean Corpuscular Volume 91 fL (79-100) Mean Corpuscular Hemoglobin 30 pg (25-35) Mean Corpuscular Hemoglobin Concent 33 g/dL (31-37) Red Cell Distribution Width 15.0 % (11.5-14.5) Platelet Count 276 x10^3/uL (140-400) Neutrophils (%) (Auto) 74 % (31-73) Lymphocytes (%) (Auto) 23 % (24-48) Monocytes (%) (Auto) 2 % (0-9) Eosinophils (%) (Auto) 0 % (0-3) Basophils (%) (Auto) 0 % (0-3) Neutrophils # (Auto) 9.2 x10^3/uL (1.8-7.7) Lymphocytes # (Auto) 2.9 x10^3/uL (1.0-4.8) Monocytes # (Auto) 0.3 x10^3/uL (0.0-1.1) Eosinophils # (Auto) 0.0 x10^3/uL (0.0-0.7) Basophils # (Auto) 0.0 x10^3/uL (0.0-0.2) Prothrombin Time 13.7 SEC (11.7-14.0) Prothromb Time International Ratio 1.1 (0.8-1.1) Activated Partial Thromboplast Time 20 SEC (24-38) Sodium Level 137 mmol/L (136-145) Potassium Level 3.7 mmol/L (3.5-5.1) Chloride Level 99 mmol/L (98-107) Carbon Dioxide Level 28 mmol/L (21-32) Anion Gap 10 (6-14) Blood Urea Nitrogen 30 mg/dL (7-20) Creatinine 1.4 mg/dL (0.6-1.0) Estimated GFR (Cockcroft-Gault) 43.2 Glucose Level 208 mg/dL (70-99) Calcium Level 9.9 mg/dL (8.5-10.1) Total Bilirubin 0.7 mg/dL (0.2-1.0) Direct Bilirubin 0.2 mg/dL (0.0-0.2) Aspartate Amino Transf (AST/SGOT) 19 U/L (15-37) Alanine Aminotransferase (ALT/SGPT) 29 U/L (14-59) Alkaline Phosphatase 69 U/L (46-116) Troponin I Quantitative < 0.017 ng/mL (0.000-0.055) SM-Biq-Y-Type Natriuretic Peptide 336 pg/mL (0-449) Total Protein 6.7 g/dL (6.4-8.2) Albumin 3.4 g/dL (3.4-5.0) Lipase 382 U/L (73-393) Lactic Acid Level 2.7 mmol/L (0.4-2.0) 2.4 mmol/L (0.4-2.0) VTE Prophylaxis Ordered VTE Prophylaxis Devices: Yes VTE Pharmacological Prophylaxi: No Assessment/Plan Assessment/Plan Pt is a 84yo AAF admitted for pneumoperitoneum 1)Pneumoperitoneum- 2/2 perforated gastric ulcer. Pt is s/p repair this morning. Feeling much better. NG in place. Pt NPO 2)HTN- significantly elevated. This appears to be a chronic issue for pt. She states that it is due to white coat hypertension. Pt normally on Metoprolol 100mg ER, Losartan 50mg, and Maxzide 25/37.5mg daily. Currently has Labetalol prn. Will start Metoprolol 5mg IV q6H and have hydralazine available prn 3)Acute on CKD- likely prerenal. Pt receiving IVF hydration. CTM 4)GERD- will start Pantoprazole IV 5)HLD- will hold pt's Atorvastatin while NPO JUSTYN BAKER MD May 13, 2019 17:00
--- NOTE | 2019-05-13 17:34 | NUR ---
pt arrived to unit at 1310 in stable condition. pt has daughter at bedside. pt is on RA and has call light within reach. pt is not having any pain at this time. hooked NG tube up to low continuous suction. received report from ADAMARIS Buchanan in PACU. will continue to monitor.
[2019-05-13] MEDS: PANTOPRAZOLE IV PUSH 40 MG VIAL. IVP SCH (18:00)
[2019-05-13] MEDS: METOPROLOL TARTRATE 5 MG/5 ML VIAL. IVP SCH (18:00)
[2019-05-13] MEDS: HYDROmorphone 2 MG/ML VIAL IVP PRN (21:16)
[2019-05-14] MEDS: METOPROLOL TARTRATE 5 MG/5 ML VIAL. IVP SCH ×5 (00:11→23:20)
[2019-05-14 03:00] VITALS: BP 168/88
--- NOTE | 2019-05-14 06:52 | PDOC ---
SUBJECTIVE Subjective Pt states that she is doing well; a little nervous but overall feeling okay. Her pain has improved. She is not passing any gas yet. OBJECTIVE Vital Signs Vital Signs Date Time Temp Pulse Resp B/P (MAP) Pulse Ox O2 Delivery O2 Flow Rate FiO2 05/14/19 06:25 79 209/99 05/14/19 03:00 98.0 108 16 168/88 (114) 96 Room Air 98.0 05/14/19 00:11 99 147/78 05/13/19 23:00 98.0 99 16 147/78 (101) 97 Room Air 98.0 05/13/19 21:55 18 Room Air 05/13/19 21:16 18 Room Air 05/13/19 19:35 Room Air 05/13/19 19:00 97.8 101 16 138/73 (94) 97 Room Air 97.8 05/13/19 18:13 106 139/73 05/13/19 15:00 98.9 103 18 132/76 (94) 97 Room Air 98.9 05/13/19 14:45 100 114/69 (84) 98 Room Air 05/13/19 14:15 101 131/68 (89) 97 Room Air 05/13/19 14:00 Room Air 05/13/19 14:00 95 123/68 (86) 98 Room Air 05/13/19 13:45 92 122/77 (92) 98 Room Air 05/13/19 13:30 98 146/68 (94) 98 Room Air 05/13/19 13:15 103 140/83 (102) 95 Room Air 05/13/19 12:24 113 214/106 05/13/19 12:20 98.6 98 20 149/81 97 Room Air 98.6 05/13/19 12:13 Room Air 05/13/19 12:01 98.6 92 20 160/81 100 Room Air 98.6 Simple Mask 05/13/19 11:46 98.6 93 20 169/85 100 Simple Mask 10 98.6 05/13/19 11:31 98.6 93 22 163/86 100 Simple Mask 10 98.6 05/13/19 11:16 98.6 91 22 182/91 100 Simple Mask 10 98.6 05/13/19 11:01 Mask 10 05/13/19 11:01 98.6 113 22 214/106 100 Simple Mask 10 98.6 05/13/19 08:12 98 112 20 193/77 98 Room Air 98.0 I & O Intake and Output 05/14/19 06:59 Intake Total 950 ml Output Total 900 ml Balance 50 ml Intake Oral 50 ml IV Total 900 ml Output Urine Total 770 ml Gastric Drainage Total 0 ml Drainage Total 130 ml PHYSICAL EXAM Physical Exam GEN.: No apparent distress. Alert and oriented. HEENT: Head is normocephalic, atraumatic, NG in place NECK: Supple. Healed scar inferior aspect of neck LUNGS: Clear to auscultation. HEART: RRR, S1, S2 present. Peripheral pulses intact ABDOMEN: Soft, mild tenderness to palpation. Incisions covered, dressings C/D/I. Decreased bowel sounds throughout EXTREMITIES: Without any cyanosis. NEUROLOGIC: Normal speech, normal tone PSYCHIATRIC: Normal affect, normal mood. SKIN: No ulcerations ASSESSMENT/PLAN Assessment/Plan Pt is a 84yo AAF admitted for pneumoperitoneum 1)Pneumoperitoneum- 2/2 perforated gastric ulcer, s/p repair. POD#1. Feeling much better. NG in place. Pt NPO 2)HTN- improved with starting IV Metoprolol but still elevated. Pt states that she does have an element of white coat syndrome. Pt normally on Metoprolol 100mg ER, Losartan 50mg, and Maxzide 25/37.5mg daily. Currently has Labetalol and hydralazine prn. Will D/C Labetalol. 3)Acute on CKD- likely prerenal. Pt receiving IVF hydration. Repeat labs pendingCTM 4)GERD- will start Pantoprazole IV 5)HLD- will hold pt's Atorvastatin while NPO COMMENT Lab Laboratory Tests Test 05/13/19 07:10 05/13/19 14:40 Lactic Acid Level 2.7 mmol/L (0.4-2.0) 2.4 mmol/L (0.4-2.0) JUSTYN BAKER MD May 14, 2019 06:52
[2019-05-14 07:00] VITALS: BP 185/85
[2019-05-14 08:31] LABS: BASO % 0 % (0-3); EOS % 0 % (0-3); HEMATOCRIT 40.4 % (36.0-47.0); HEMOGLOBIN 13.4 g/dL (12.0-15.5); LYMPH # 1.2 x10^3/uL (1.0-4.8); LYMPH % 8 % (24-48); MEAN CORPUSCULAR HEMOGLOBIN 30 pg (25-35); MEAN CORPUSCULAR HGB CONC 33 g/dL (31-37); MEAN CORPUSCULAR VOLUME 90 fL (79-100); MONO % 7 % (0-9); NEUT # 12.3 x10^3/uL (1.8-7.7); NEUT % 85 % (31-73); PLATELET COUNT 225 x10^3/uL (140-400); RED BLOOD COUNT 4.49 x10^6/uL (3.50-5.40); RED CELL DISTRIBUTION WIDTH 15.3 % (11.5-14.5); WHITE BLOOD COUNT 14.5 x10^3/uL (4.0-11.0)
[2019-05-14 08:58] LABS: ALBUMIN 2.7 g/dL (3.4-5.0); ALBUMIN/GLOBULIN RATIO 0.7 (1.0-1.7); CALCIUM 9.4 mg/dL (8.5-10.1); CREATININE 1.3 mg/dL (0.6-1.0); GFR 47.1; POTASSIUM 3.9 mmol/L (3.5-5.1); TOTAL BILIRUBIN 0.9 mg/dL (0.2-1.0); TOTAL PROTEIN 6.4 g/dL (6.4-8.2)
[2019-05-14] MEDS: PANTOPRAZOLE IV PUSH 40 MG VIAL. IVP SCH ×2 (10:07→17:31)
[2019-05-14 11:00] VITALS: BP 183/102
--- NOTE | 2019-05-14 11:01 | NUR ---
SS following for discharge planning. SS reviewed pt chart. Pt is from home and is currently on room air. PT/OT ordered. SS will await PT/OT evaluations and recommendations and will proceed accordingly with discharge planning.
[2019-05-14] MEDS: HYDROmorphone 2 MG/ML VIAL IVP PRN ×2 (12:33→23:23)
--- NOTE | 2019-05-14 13:13 | PDOC ---
PROGRESS NOTES Subjective Subjective pain is better Objective Objective Vital Signs Date Time Temp Pulse Resp B/P (MAP) Pulse Ox O2 Delivery O2 Flow Rate FiO2 05/14/19 12:41 109 149/65 05/14/19 12:41 Room Air 05/14/19 11:00 98.2 16 98 98.2 05/13/19 11:46 10 Intake and Output 05/14/19 07:00 Intake Total 950 ml Output Total 900 ml Balance 50 ml Intake Oral 50 ml IV Total 900 ml Output Urine Total 770 ml Gastric Drainage Total 0 ml Drainage Total 130 ml Physical Exam Abdomen: Soft (DRU serosang) Assessment Assessment Problems Medical Problems: (1) Abdominal pain Status: Acute (2) Acute kidney injury superimposed on CKD Status: Acute (3) GERD (gastroesophageal reflux disease) Status: Chronic (4) HLD (hyperlipidemia) Status: Chronic (5) HTN (hypertension) Status: Chronic (6) PP (pneumoperitoneum) Status: Acute Plan Plan of Care postop care, maggi herman in for now Comment Review of Relevant I have reviewed the following items juan j (where applicable) has been applied. Labs Laboratory Tests Test 05/13/19 05:15 05/13/19 07:10 05/13/19 14:40 05/14/19 06:35 White Blood Count 12.4 x10^3/uL (4.0-11.0) 14.5 x10^3/uL (4.0-11.0) Red Blood Count 4.77 x10^6/uL (3.50-5.40) 4.49 x10^6/uL (3.50-5.40) Hemoglobin 14.1 g/dL (12.0-15.5) 13.4 g/dL (12.0-15.5) Hematocrit 43.3 % (36.0-47.0) 40.4 % (36.0-47.0) Mean Corpuscular Volume 91 fL (79-100) 90 fL (79-100) Mean Corpuscular Hemoglobin 30 pg (25-35) 30 pg (25-35) Mean Corpuscular Hemoglobin Concent 33 g/dL (31-37) 33 g/dL (31-37) Red Cell Distribution Width 15.0 % (11.5-14.5) 15.3 % (11.5-14.5) Platelet Count 276 x10^3/uL (140-400) 225 x10^3/uL (140-400) Neutrophils (%) (Auto) 74 % (31-73) 85 % (31-73) Lymphocytes (%) (Auto) 23 % (24-48) 8 % (24-48) Monocytes (%) (Auto) 2 % (0-9) 7 % (0-9) Eosinophils (%) (Auto) 0 % (0-3) 0 % (0-3) Basophils (%) (Auto) 0 % (0-3) 0 % (0-3) Neutrophils # (Auto) 9.2 x10^3/uL (1.8-7.7) 12.3 x10^3/uL (1.8-7.7) Lymphocytes # (Auto) 2.9 x10^3/uL (1.0-4.8) 1.2 x10^3/uL (1.0-4.8) Monocytes # (Auto) 0.3 x10^3/uL (0.0-1.1) 1.0 x10^3/uL (0.0-1.1) Eosinophils # (Auto) 0.0 x10^3/uL (0.0-0.7) 0.0 x10^3/uL (0.0-0.7) Basophils # (Auto) 0.0 x10^3/uL (0.0-0.2) 0.0 x10^3/uL (0.0-0.2) Prothrombin Time 13.7 SEC (11.7-14.0) Prothromb Time International Ratio 1.1 (0.8-1.1) Activated Partial Thromboplast Time 20 SEC (24-38) Sodium Level 137 mmol/L (136-145) 139 mmol/L (136-145) Potassium Level 3.7 mmol/L (3.5-5.1) 3.9 mmol/L (3.5-5.1) Chloride Level 99 mmol/L (98-107) 102 mmol/L (98-107) Carbon Dioxide Level 28 mmol/L (21-32) 27 mmol/L (21-32) Anion Gap 10 (6-14) 10 (6-14) Blood Urea Nitrogen 30 mg/dL (7-20) 30 mg/dL (7-20) Creatinine 1.4 mg/dL (0.6-1.0) 1.3 mg/dL (0.6-1.0) Estimated GFR (Cockcroft-Gault) 43.2 47.1 Glucose Level 208 mg/dL (70-99) 146 mg/dL (70-99) Calcium Level 9.9 mg/dL (8.5-10.1) 9.4 mg/dL (8.5-10.1) Total Bilirubin 0.7 mg/dL (0.2-1.0) 0.9 mg/dL (0.2-1.0) Direct Bilirubin 0.2 mg/dL (0.0-0.2) Aspartate Amino Transf (AST/SGOT) 19 U/L (15-37) 16 U/L (15-37) Alanine Aminotransferase (ALT/SGPT) 29 U/L (14-59) 23 U/L (14-59) Alkaline Phosphatase 69 U/L (46-116) 65 U/L (46-116) Troponin I Quantitative < 0.017 ng/mL (0.000-0.055) NA-Xan-C-Type Natriuretic Peptide 336 pg/mL (0-449) Total Protein 6.7 g/dL (6.4-8.2) 6.4 g/dL (6.4-8.2) Albumin 3.4 g/dL (3.4-5.0) 2.7 g/dL (3.4-5.0) Lipase 382 U/L (73-393) Lactic Acid Level 2.7 mmol/L (0.4-2.0) 2.4 mmol/L (0.4-2.0) BUN/Creatinine Ratio 23 (6-20) Albumin/Globulin Ratio 0.7 (1.0-1.7) Laboratory Tests Test 05/13/19 14:40 05/14/19 06:35 Lactic Acid Level 2.4 mmol/L (0.4-2.0) White Blood Count 14.5 x10^3/uL (4.0-11.0) Red Blood Count 4.49 x10^6/uL (3.50-5.40) Hemoglobin 13.4 g/dL (12.0-15.5) Hematocrit 40.4 % (36.0-47.0) Mean Corpuscular Volume 90 fL (79-100) Mean Corpuscular Hemoglobin 30 pg (25-35) Mean Corpuscular Hemoglobin Concent 33 g/dL (31-37) Red Cell Distribution Width 15.3 % (11.5-14.5) Platelet Count 225 x10^3/uL (140-400) Neutrophils (%) (Auto) 85 % (31-73) Lymphocytes (%) (Auto) 8 % (24-48) Monocytes (%) (Auto) 7 % (0-9) Eosinophils (%) (Auto) 0 % (0-3) Basophils (%) (Auto) 0 % (0-3) Neutrophils # (Auto) 12.3 x10^3/uL (1.8-7.7) Lymphocytes # (Auto) 1.2 x10^3/uL (1.0-4.8) Monocytes # (Auto) 1.0 x10^3/uL (0.0-1.1) Eosinophils # (Auto) 0.0 x10^3/uL (0.0-0.7) Basophils # (Auto) 0.0 x10^3/uL (0.0-0.2) Sodium Level 139 mmol/L (136-145) Potassium Level 3.9 mmol/L (3.5-5.1) Chloride Level 102 mmol/L (98-107) Carbon Dioxide Level 27 mmol/L (21-32) Anion Gap 10 (6-14) Blood Urea Nitrogen 30 mg/dL (7-20) Creatinine 1.3 mg/dL (0.6-1.0) Estimated GFR (Cockcroft-Gault) 47.1 BUN/Creatinine Ratio 23 (6-20) Glucose Level 146 mg/dL (70-99) Calcium Level 9.4 mg/dL (8.5-10.1) Total Bilirubin 0.9 mg/dL (0.2-1.0) Aspartate Amino Transf (AST/SGOT) 16 U/L (15-37) Alanine Aminotransferase (ALT/SGPT) 23 U/L (14-59) Alkaline Phosphatase 65 U/L (46-116) Total Protein 6.4 g/dL (6.4-8.2) Albumin 2.7 g/dL (3.4-5.0) Albumin/Globulin Ratio 0.7 (1.0-1.7) Medications Current Medications Fentanyl Citrate (Fentanyl 2ml Vial) 50 mcg 1X ONCE IV ; Start 05/13/19 at 08:15; Stop 05/13/19 at 08:16; Status DC Ondansetron HCl (Zofran) 4 mg 1X ONCE IV ; Start 05/13/19 at 08:15; Stop 05/13/19 at 08:16; Status DC Sodium Chloride 500 ml @ 500 mls/hr 1X ONCE IV ; Start 05/13/19 at 08:15; Stop 05/13/19 at 09:14; Status DC Morphine Sulfate (Morphine Sulfate) 4 mg 1X ONCE IV ; Start 05/13/19 at 08:15; Stop 05/13/19 at 08:16; Status DC Piperacillin Sod/ Tazobactam Sod 4.5 gm/Sodium Chloride 100 ml @ 200 mls/hr 1X ONCE IV ; Start 05/13/19 at 08:15; Stop 05/13/19 at 08:44; Status DC Ondansetron HCl (Zofran) 4 mg PRN Q6HRS PRN IV NAUSEA/VOMITING; Start 05/13/19 at 08:30; Stop 05/14/19 at 08:29; Status DC Fentanyl Citrate (Fentanyl 2ml Vial) 25 mcg PRN Q5MIN PRN IV MILD PAIN 1-3; Start 05/13/19 at 08:30; Stop 05/14/19 at 08:29; Status DC Fentanyl Citrate (Fentanyl 2ml Vial) 50 mcg PRN Q5MIN PRN IV MODERATE TO SEVERE PAIN; Start 05/13/19 at 08:30; Stop 05/14/19 at 08:29; Status DC Morphine Sulfate (Morphine Sulfate) 1 mg PRN Q10MIN PRN IV SEVERE PAIN 7-10; Start 05/13/19 at 08:30; Stop 05/14/19 at 08:29; Status DC Ringer's Solution 1,000 ml @ 30 mls/hr Q24H IV ; Start 05/13/19 at 08:16; Stop 05/13/19 at 20:15; Status DC Lidocaine HCl (Xylocaine-Mpf 1% 2ml Vial) 2 ml 1X PRN PRN ID IV START; Start 05/13/19 at 08:30; Stop 05/14/19 at 08:29; Status DC Hydromorphone HCl (Dilaudid) 0.5 mg PRN Q10MIN PRN IV SEV PAIN, Second choice; Start 05/13/19 at 08:30; Stop 05/14/19 at 08:29; Status DC Prochlorperazine Edisylate (Compazine) 5 mg PACU PRN PRN IV NAUSEA, MRX1; Start 05/13/19 at 08:30; Stop 05/14/19 at 08:29; Status DC Ondansetron HCl (Zofran) 4 mg STK-MED ONCE .ROUTE ; Start 05/13/19 at 08:38; Stop 05/13/19 at 08:38; Status DC Propofol 20 ml @ As Directed STK-MED ONCE IV ; Start 05/13/19 at 08:38; Stop 05/13/19 at 08:38; Status DC Lidocaine HCl (Lidocaine Pf 2% Vial) 5 ml STK-MED ONCE .ROUTE ; Start 05/13/19 at 08:38; Stop 05/13/19 at 08:38; Status DC Dexamethasone Sodium Phosphate (Decadron) 4 mg STK-MED ONCE .ROUTE ; Start 05/13/19 at 08:38; Stop 05/13/19 at 08:38; Status DC Fentanyl Citrate (Fentanyl 2ml Vial) 100 mcg STK-MED ONCE .ROUTE ; Start 05/13/19 at 08:38; Stop 05/13/19 at 08:38; Status DC Rocuronium [place] (Zemuron) 100 mg STK-MED ONCE .ROUTE ; Start 05/13/19 at 08:39 ; Stop 05/13/19 at 08:39; Status DC Succinylcholine Chloride (Anectine) 200 mg STK-MED ONCE .ROUTE ; Start 05/13/19 at 08:39; Stop 05/13/19 at 08:39; Status DC Hydrocortisone Sodium Succinate (Solu-CORTEF) 100 mg STK-MED ONCE .ROUTE ; Start 05/13/19 at 08:55; Stop 05/13/19 at 08:55; Status DC Phenylephrine HCl (PHENYLEPHRINE in 0.9% NACL PF) 1 mg STK-MED ONCE IV ; Start 05/13/19 at 09:19; Stop 05/13/19 at 09:20; Status DC Phenylephrine HCl (Danielito-Synephrine Inj) 10 mg STK-MED ONCE .ROUTE ; Start 05/13/19 at 09:19; Stop 05/13/19 at 09:20; Status DC Ephedrine Sulfate (ePHEDrine PF IN SALINE SYRINGE) 50 mg STK-MED ONCE IV ; Start 05/13/19 at 09:19; Stop 05/13/19 at 09:20; Status DC Neostigmine Methylsulfate (Bloxiverz) 10 mg STK-MED ONCE .ROUTE ; Start 05/13/19 at 09:53; Stop 05/13/19 at 09:54; Status DC Glycopyrrolate (Robinul) 1 mg STK-MED ONCE .ROUTE ; Start 05/13/19 at 09:53; Stop 05/13/19 at 09:54; Status DC Methylene Blue (Methylene Blue) 1 ml STK-MED ONCE .ROUTE ; Start 05/13/19 at 09:12; Stop 05/13/19 at 10:12; Status DC Bupivacaine HCl (Sensorcaine Mpf 0.5%) 30 ml STK-MED ONCE .ROUTE Last administered on 05/13/19at 10:50; Start 05/13/19 at 09:40; Stop 05/13/19 at 10:40; Status DC Bupivacaine HCl/ Epinephrine Bitart (Sensorcaine-Epi 0.25%-1:[id number] Mpf) 30 ml STK-MED ONCE .ROUTE ; Start 05/13/19 at 09:41; Stop 05/13/19 at 10:41; Status DC Hydromorphone HCl (Dilaudid) 0.2 mg PRN Q4HRS PRN IVP MILD PAIN 1-3; Start 05/13/19 at 11:15 Hydromorphone HCl (Dilaudid) 0.5 mg PRN Q4HRS PRN IVP MODERATE PAIN, SEVERE PAIN Last administered on 05/14/19at 12:41; Start 05/13/19 at 11:15 Labetalol HCl (Normodyne Iv Push) 10 mg PRN Q15MIN PRN IVP HYPERTENSION Last administered on 05/13/19at 12:24; Start 05/13/19 at 11:15; Stop 05/14/19 at 11:14; Status DC Hydralazine HCl (Apresoline Inj) 10 mg PRN Q4HRS PRN IVP ELEVATED BP, SEE COMMENTS; Start 05/13/19 at 17:00 Metoprolol Tartrate (Lopressor Vial) 5 mg Q6HRS IVP Last administered on 05/14/19at 12:41; Start 05/13/19 at 18:00 Pantoprazole Sodium (PROTONIX VIAL for IV PUSH) 40 mg DAILYAC IVP Last administered on 05/14/19at 10:07; Start 05/13/19 at 18:00 Active Scripts Active Vitals/I & O Vital Sign - Last 24 Hours 05/13/19 05/13/19 05/13/19 05/13/19 13:15 13:30 13:45 14:00 Pulse 103 98 92 95 B/P (MAP) 140/83 (102) 146/68 (94) 122/77 (92) 123/68 (86) Pulse Ox 95 98 98 98 O2 Delivery Room Air Room Air Room Air Room Air 05/13/19 05/13/19 05/13/19 05/13/19 14:00 14:15 14:45 15:00 Temp 98.9 98.9 Pulse 101 100 103 Resp 18 B/P (MAP) 131/68 (89) 114/69 (84) 132/76 (94) Pulse Ox 97 98 97 O2 Delivery Room Air Room Air Room Air Room Air 05/13/19 05/13/19 05/13/19 05/13/19 18:13 19:00 19:35 21:16 Temp 97.8 97.8 Pulse 106 101 Resp 16 18 B/P (MAP) 139/73 138/73 (94) Pulse Ox 97 O2 Delivery Room Air Room Air Room Air 05/13/19 05/13/19 05/14/19 05/14/19 21:55 23:00 00:11 03:00 Temp 98.0 98.0 98.0 98.0 Pulse 99 99 108 Resp 18 16 16 B/P (MAP) 147/78 (101) 147/78 168/88 (114) Pulse Ox 97 96 O2 Delivery Room Air Room Air Room Air 05/14/19 05/14/19 05/14/19 05/14/19 06:25 07:00 11:00 12:41 Temp 98.2 98.2 98.2 98.2 Pulse 79 93 102 Resp 16 16 B/P (MAP) 209/99 185/85 (118) 183/102 (129) Pulse Ox 100 98 O2 Delivery Room Air Room Air Room Air 05/14/19 12:41 Pulse 109 B/P (MAP) 149/65 Intake and Output 05/13/19 05/13/19 05/14/19 15:00 23:00 07:00 Intake Total 900 ml 0 ml 50 ml Output Total 290 ml 60 ml 550 ml Balance 610 ml -60 ml -500 ml VIDYA BEJARANO MD May 14, 2019 13:13
[2019-05-14 15:00] VITALS: BP 154/68
[2019-05-14 19:00] VITALS: BP 160/75
[2019-05-14] MEDS: IV NORMAL SALINE 1000ML BAG 1,000 ML IV SCH (19:29)
[2019-05-14 23:17] VITALS: BP 193/92
[2019-05-15] VITALS (8 sets, daily range): BP systolic 144–192; BP diastolic 58–95
--- NOTE | 2019-05-15 00:30 | NUR ---
Patient triggered septic on the sepsis screen, ICU charge nurse was notified. ICU charge attendant wanted a lactic acid and blood cultures drawn per protocol. ICU charge attendant was notified of the 1.4 LA and this RN was told to inform MD in the am of labs. RN will continue to monitor patient closely.
[2019-05-15] MEDS: hydrALAZINE 20 MG/ML VIAL. IVP PRN (02:06)
--- NOTE | 2019-05-15 03:44 | NUR ---
RN notified MD of patients high BP's despite nursing interventions given, increased confusion of patient, positive sepsis screen, and result of LA 1.4 Orders were received to let patient rest and to recheck vitals when due. RN will continue to monitor patient closely.
[2019-05-15] MEDS: IV NORMAL SALINE 1000ML BAG 1,000 ML IV SCH ×2 (04:37→13:08)
[2019-05-15] MEDS: PANTOPRAZOLE IV PUSH 40 MG VIAL. IVP SCH ×2 (06:23→16:01)
[2019-05-15] MEDS: METOPROLOL TARTRATE 5 MG/5 ML VIAL. IVP SCH ×3 (06:23→18:24)
--- NOTE | 2019-05-15 07:41 | PDOC ---
SUBJECTIVE Subjective Pt apparently had episode of increased confusion last night. Pt does appear to still be a little confused this morning. She states that she is feeling well. She did have some nausea last night that has resolved. Denies vomiting. Does not feel feverish. Pain is well controlled. OBJECTIVE Vital Signs Vital Signs Date Time Temp Pulse Resp B/P (MAP) Pulse Ox O2 Delivery O2 Flow Rate FiO2 05/15/19 06:24 126 180/83 (115) Room Air 05/15/19 06:23 126 180/83 05/15/19 03:30 98.3 141 18 192/87 (122) 95 Room Air 98.3 05/15/19 02:06 105 181/84 05/15/19 02:02 105 181/84 (116) Room Air 05/15/19 00:41 108 179/95 (123) Room Air 05/15/19 00:40 Room Air 05/14/19 23:23 Room Air 05/14/19 23:23 121 193/92 05/14/19 23:17 99.4 121 18 193/92 (125) 97 Room Air 99.4 05/14/19 19:35 Room Air 05/14/19 19:00 99.1 110 16 160/75 (103) 97 Room Air 99.1 05/14/19 17:39 Room Air 05/14/19 17:34 116 169/76 05/14/19 15:00 98.2 100 16 154/68 (96) 97 Room Air 98.2 05/14/19 12:41 109 149/65 05/14/19 12:41 Room Air 05/14/19 11:00 98.2 102 16 183/102 (129) 98 Room Air 98.2 05/14/19 08:15 Room Air I & O Intake and Output 05/15/19 06:59 Intake Total 0 ml Output Total 635 ml Balance -635 ml Intake Oral 0 ml Output Urine Total 575 ml Gastric Drainage Total 0 ml Drainage Total 60 ml # Voids 1 PHYSICAL EXAM Physical Exam GEN.: No apparent distress. Alert and oriented. Mildly confused HEENT: Head is normocephalic, atraumatic, NG in place NECK: Supple. Healed scar inferior aspect of neck LUNGS: Clear to auscultation. HEART: regular rhythm, tachycardic, S1, S2 present. Peripheral pulses intact ABDOMEN: Soft, NTTP. Incisions covered, dressings C/D/I. Decreased bowel sounds throughout EXTREMITIES: Without any cyanosis. NEUROLOGIC: Normal speech, normal tone PSYCHIATRIC: Normal affect, normal mood. SKIN: No ulcerations ASSESSMENT/PLAN Assessment/Plan Pt is a 84yo AAF admitted for pneumoperitoneum 1)Pneumoperitoneum- 2/2 perforated gastric ulcer, s/p repair. POD#2. Pain well controlled. NG in place. Pt NPO 2)Altered mental status and SIRS+ with no known source of infection other than possibly related to above- u/a and blood cultures ordered. Pt is afebrile. Not having significant abdominal tenderness. Will CTM. Will give IVF bolus for tachycardia 2)HTN- was improving yesterday with IV Metoprolol but elevated today. Pt states that she does have an element of white coat syndrome. Pt normally on Metoprolol 100mg ER, Losartan 50mg, and Maxzide 25/37.5mg daily. Pt also receiving prn IV Hydralazine 3)Acute on CKD- likely prerenal. Pt receiving IVF hydration. Improving 4)GERD- pt on Pantoprazole IV 5)HLD- will hold pt's Atorvastatin while NPO 6)Hyperglycemia- HbA1C pending 7)PEM- moderate COMMENT Lab Laboratory Tests Test 05/15/19 01:25 Lactic Acid Level 1.4 mmol/L (0.4-2.0) JUSTYN BAKER MD May 15, 2019 07:41
[2019-05-15] MEDS ORDERED: IV NORMAL SALINE 500ML BAG 500 ML IV ONE (07:45)
[2019-05-15 08:32] LABS: BASO % 0 % (0-3); EOS % 0 % (0-3); HEMATOCRIT 38.9 % (36.0-47.0); HEMOGLOBIN 12.7 g/dL (12.0-15.5); LYMPH # 0.6 x10^3/uL (1.0-4.8); LYMPH % 4 % (24-48); MEAN CORPUSCULAR HEMOGLOBIN 30 pg (25-35); MEAN CORPUSCULAR HGB CONC 33 g/dL (31-37); MEAN CORPUSCULAR VOLUME 91 fL (79-100); MONO # 0.4 x10^3/uL (0.0-1.1); MONO % 3 % (0-9); NEUT # 12.9 x10^3/uL (1.8-7.7); NEUT % 93 % (31-73); PLATELET COUNT 223 x10^3/uL (140-400); RED CELL DISTRIBUTION WIDTH 15.6 % (11.5-14.5); WHITE BLOOD COUNT 13.9 x10^3/uL (4.0-11.0)
[2019-05-15 09:05] LABS: CLARITY,URINE CLEAR; COLOR,URINE GREEN; PH,URINE 5.5
[2019-05-15 09:23] LABS: BACTERIA,URINE MODERATE /HPF (0-FEW); RBC,URINE OCC /HPF (0-2); SQUAMOUS EPITHELIAL CELL,UR OCC /LPF
[2019-05-15 09:46] LABS: % BANDS 11 % (0-9); % LYMPHS 9 % (24-48); % MONOS 3 % (0-10); % SEGS 77 % (35-66); PLT ESTIMATE ADEQUATE (ADEQUATE)
[2019-05-15 09:47] LABS: ANISOCYTOSIS SLIGHT
[2019-05-15] MEDS ORDERED: FLUT16SP NS (09:53)
[2019-05-15] MEDS ORDERED: PRAV10TA2 PO (09:53)
--- NOTE | 2019-05-15 10:13 | PDOC ---
PROGRESS NOTES Subjective Subjective better mood today, denies pain Objective Objective Vital Signs Date Time Temp Pulse Resp B/P (MAP) Pulse Ox O2 Delivery O2 Flow Rate FiO2 05/15/19 08:00 Room Air 05/15/19 06:24 126 180/83 (115) 05/15/19 03:30 98.3 18 95 98.3 05/13/19 11:46 10 Intake and Output 05/15/19 06:59 Intake Total 0 ml Output Total 635 ml Balance -635 ml Intake Oral 0 ml Output Urine Total 575 ml Gastric Drainage Total 0 ml Drainage Total 60 ml # Voids 1 Physical Exam Abdomen: Soft (DRU serosang) Assessment Assessment Problems Medical Problems: (1) Abdominal pain Status: Acute (2) Acute kidney injury superimposed on CKD Status: Acute (3) GERD (gastroesophageal reflux disease) Status: Chronic (4) HLD (hyperlipidemia) Status: Chronic (5) HTN (hypertension) Status: Chronic (6) PP (pneumoperitoneum) Status: Acute Plan Plan of Care DC NG tube, poss clears tomorrow Comment Review of Relevant I have reviewed the following items juan j (where applicable) has been applied. Labs Laboratory Tests Test 05/13/19 14:40 05/14/19 06:35 05/15/19 01:25 05/15/19 08:53 Lactic Acid Level 2.4 mmol/L (0.4-2.0) 1.4 mmol/L (0.4-2.0) White Blood Count 14.5 x10^3/uL (4.0-11.0) 13.9 x10^3/uL (4.0-11.0) Red Blood Count 4.49 x10^6/uL (3.50-5.40) 4.30 x10^6/uL (3.50-5.40) Hemoglobin 13.4 g/dL (12.0-15.5) 12.7 g/dL (12.0-15.5) Hematocrit 40.4 % (36.0-47.0) 38.9 % (36.0-47.0) Mean Corpuscular Volume 90 fL (79-100) 91 fL (79-100) Mean Corpuscular Hemoglobin 30 pg (25-35) 30 pg (25-35) Mean Corpuscular Hemoglobin Concent 33 g/dL (31-37) 33 g/dL (31-37) Red Cell Distribution Width 15.3 % (11.5-14.5) 15.6 % (11.5-14.5) Platelet Count 225 x10^3/uL (140-400) 223 x10^3/uL (140-400) Neutrophils (%) (Auto) 85 % (31-73) 93 % (31-73) Lymphocytes (%) (Auto) 8 % (24-48) 4 % (24-48) Monocytes (%) (Auto) 7 % (0-9) 3 % (0-9) Eosinophils (%) (Auto) 0 % (0-3) 0 % (0-3) Basophils (%) (Auto) 0 % (0-3) 0 % (0-3) Neutrophils # (Auto) 12.3 x10^3/uL (1.8-7.7) 12.9 x10^3/uL (1.8-7.7) Lymphocytes # (Auto) 1.2 x10^3/uL (1.0-4.8) 0.6 x10^3/uL (1.0-4.8) Monocytes # (Auto) 1.0 x10^3/uL (0.0-1.1) 0.4 x10^3/uL (0.0-1.1) Eosinophils # (Auto) 0.0 x10^3/uL (0.0-0.7) 0.0 x10^3/uL (0.0-0.7) Basophils # (Auto) 0.0 x10^3/uL (0.0-0.2) 0.0 x10^3/uL (0.0-0.2) Sodium Level 139 mmol/L (136-145) Potassium Level 3.9 mmol/L (3.5-5.1) Chloride Level 102 mmol/L (98-107) Carbon Dioxide Level 27 mmol/L (21-32) Anion Gap 10 (6-14) Blood Urea Nitrogen 30 mg/dL (7-20) Creatinine 1.3 mg/dL (0.6-1.0) Estimated GFR (Cockcroft-Gault) 47.1 BUN/Creatinine Ratio 23 (6-20) Glucose Level 146 mg/dL (70-99) Calcium Level 9.4 mg/dL (8.5-10.1) Total Bilirubin 0.9 mg/dL (0.2-1.0) Aspartate Amino Transf (AST/SGOT) 16 U/L (15-37) Alanine Aminotransferase (ALT/SGPT) 23 U/L (14-59) Alkaline Phosphatase 65 U/L (46-116) Total Protein 6.4 g/dL (6.4-8.2) Albumin 2.7 g/dL (3.4-5.0) Albumin/Globulin Ratio 0.7 (1.0-1.7) Segmented Neutrophils % 77 % (35-66) Band Neutrophils % 11 % (0-9) Lymphocytes % 9 % (24-48) Monocytes % 3 % (0-10) Platelet Estimate Adequate (ADEQUATE) Anisocytosis Slight Urine Collection Type Unknown Urine Color Green Urine Clarity Clear Urine pH 5.5 Urine Specific [place] 1.020 Urine Protein mg/dL (NEG-TRACE) Urine Glucose (UA) mg/dL (NEG) Urine Ketones (Stick) mg/dL (NEG) Urine Blood (NEG) Urine Nitrite (NEG) Urine Bilirubin (NEG) Urine Urobilinogen Dipstick mg/dL (0.2 mg/dL) Urine Leukocyte Esterase (NEG) Urine RBC Occ /HPF (0-2) Urine WBC 5-10 /HPF (0-4) Urine Squamous Epithelial Cells Occ /LPF Urine Bacteria Moderate /HPF (0-FEW) Laboratory Tests Test 05/15/19 01:25 05/15/19 08:53 White Blood Count 13.9 x10^3/uL (4.0-11.0) Red Blood Count 4.30 x10^6/uL (3.50-5.40) Hemoglobin 12.7 g/dL (12.0-15.5) Hematocrit 38.9 % (36.0-47.0) Mean Corpuscular Volume 91 fL (79-100) Mean Corpuscular Hemoglobin 30 pg (25-35) Mean Corpuscular Hemoglobin Concent 33 g/dL (31-37) Red Cell Distribution Width 15.6 % (11.5-14.5) Platelet Count 223 x10^3/uL (140-400) Neutrophils (%) (Auto) 93 % (31-73) Lymphocytes (%) (Auto) 4 % (24-48) Monocytes (%) (Auto) 3 % (0-9) Eosinophils (%) (Auto) 0 % (0-3) Basophils (%) (Auto) 0 % (0-3) Neutrophils # (Auto) 12.9 x10^3/uL (1.8-7.7) Lymphocytes # (Auto) 0.6 x10^3/uL (1.0-4.8) Monocytes # (Auto) 0.4 x10^3/uL (0.0-1.1) Eosinophils # (Auto) 0.0 x10^3/uL (0.0-0.7) Basophils # (Auto) 0.0 x10^3/uL (0.0-0.2) Segmented Neutrophils % 77 % (35-66) Band Neutrophils % 11 % (0-9) Lymphocytes % 9 % (24-48) Monocytes % 3 % (0-10) Platelet Estimate Adequate (ADEQUATE) Anisocytosis Slight Lactic Acid Level 1.4 mmol/L (0.4-2.0) Urine Collection Type Unknown Urine Color Green Urine Clarity Clear Urine pH 5.5 Urine Specific [place] 1.020 Urine Protein mg/dL (NEG-TRACE) Urine Glucose (UA) mg/dL (NEG) Urine Ketones (Stick) mg/dL (NEG) Urine Blood (NEG) Urine Nitrite (NEG) Urine Bilirubin (NEG) Urine Urobilinogen Dipstick mg/dL (0.2 mg/dL) Urine Leukocyte Esterase (NEG) Urine RBC Occ /HPF (0-2) Urine WBC 5-10 /HPF (0-4) Urine Squamous Epithelial Cells Occ /LPF Urine Bacteria Moderate /HPF (0-FEW) Medications Current Medications Fentanyl Citrate (Fentanyl 2ml Vial) 50 mcg 1X ONCE IV ; Start 05/13/19 at 08:15; Stop 05/13/19 at 08:16; Status DC Ondansetron HCl (Zofran) 4 mg 1X ONCE IV ; Start 05/13/19 at 08:15; Stop 05/13/19 at 08:16; Status DC Sodium Chloride 500 ml @ 500 mls/hr 1X ONCE IV ; Start 05/13/19 at 08:15; Stop 05/13/19 at 09:14; Status DC Morphine Sulfate (Morphine Sulfate) 4 mg 1X ONCE IV ; Start 05/13/19 at 08:15; Stop 05/13/19 at 08:16; Status DC Piperacillin Sod/ Tazobactam Sod 4.5 gm/Sodium Chloride 100 ml @ 200 mls/hr 1X ONCE IV ; Start 05/13/19 at 08:15; Stop 05/13/19 at 08:44; Status DC Ondansetron HCl (Zofran) 4 mg PRN Q6HRS PRN IV NAUSEA/VOMITING; Start 05/13/19 at 08:30; Stop 05/14/19 at 08:29; Status DC Fentanyl Citrate (Fentanyl 2ml Vial) 25 mcg PRN Q5MIN PRN IV MILD PAIN 1-3; Start 05/13/19 at 08:30; Stop 05/14/19 at 08:29; Status DC Fentanyl Citrate (Fentanyl 2ml Vial) 50 mcg PRN Q5MIN PRN IV MODERATE TO SEVERE PAIN; Start 05/13/19 at 08:30; Stop 05/14/19 at 08:29; Status DC Morphine Sulfate (Morphine Sulfate) 1 mg PRN Q10MIN PRN IV SEVERE PAIN 7-10; Start 05/13/19 at 08:30; Stop 05/14/19 at 08:29; Status DC Ringer's Solution 1,000 ml @ 30 mls/hr Q24H IV ; Start 05/13/19 at 08:16; Stop 05/13/19 at 20:15; Status DC Lidocaine HCl (Xylocaine-Mpf 1% 2ml Vial) 2 ml 1X PRN PRN ID IV START; Start 05/13/19 at 08:30; Stop 05/14/19 at 08:29; Status DC Hydromorphone HCl (Dilaudid) 0.5 mg PRN Q10MIN PRN IV SEV PAIN, Second choice; Start 05/13/19 at 08:30; Stop 05/14/19 at 08:29; Status DC Prochlorperazine Edisylate (Compazine) 5 mg PACU PRN PRN IV NAUSEA, MRX1; Start 05/13/19 at 08:30; Stop 05/14/19 at 08:29; Status DC Ondansetron HCl (Zofran) 4 mg STK-MED ONCE .ROUTE ; Start 05/13/19 at 08:38; Stop 05/13/19 at 08:38; Status DC Propofol 20 ml @ As Directed STK-MED ONCE IV ; Start 05/13/19 at 08:38; Stop at 08:38; Status DC Lidocaine HCl (Lidocaine Pf 2% Vial) 5 ml STK-MED ONCE .ROUTE ; Start 05/13/19 at 08:38; Stop 05/13/19 at 08:38; Status DC Dexamethasone Sodium Phosphate (Decadron) 4 mg STK-MED ONCE .ROUTE ; Start 05/13/19 at 08:38; Stop 05/13/19 at 08:38; Status DC Fentanyl Citrate (Fentanyl 2ml Vial) 100 mcg STK-MED ONCE .ROUTE ; Start 05/13/19 at 08:38; Stop 05/13/19 at 08:38; Status DC Rocuronium [place] (Zemuron) 100 mg STK-MED ONCE .ROUTE ; Start 05/13/19 at 08:39; Stop 05/13/19 at 08:39; Status DC Succinylcholine Chloride (Ane[place]) 200 mg STK-MED ONCE .ROUTE ; Start 05/13/19 at 08:39; Stop 05/13/19 at 08:39; Status DC Hydrocortisone Sodium Succinate (Solu-CORTEF) 100 mg STK-MED ONCE .ROUTE ; Start 05/13/19 at 08:55; Stop 05/13/19 at 08:55; Status DC Phenylephrine HCl (PHENYLEPHRINE in 0.9% NACL PF) 1 mg STK-MED ONCE IV ; Start 05/13/19 at 09:19; Stop 05/13/19 at 09:20; Status DC Phenylephrine HCl ([place]-Synephrine Inj) 10 mg STK-MED ONCE .ROUTE ; Start 05/13/19 at 09:19; Stop 05/13/19 at 09:20; Status DC Ephedrine Sulfate (ePHEDrine PF IN SALINE SYRINGE) 50 mg STK-MED ONCE IV ; Start 05/13/19 at 09:19; Stop 05/13/19 at 09:20; Status DC Neostigmine Methylsulfate (Bloxiverz) 10 mg STK-MED ONCE .ROUTE ; Start 05/13/19 at 09:53; Stop 05/13/19 at 09:54; Status DC Glycopyrrolate (Robinul) 1 mg STK-MED ONCE .ROUTE ; Start 05/13/19 at 09:53; Stop 05/13/19 at 09:54; Status DC Methylene Blue (Methylene Blue) 1 ml STK-MED ONCE .ROUTE ; Start 05/13/19 at 09:12; Stop 05/13/19 at 10:12; Status DC Bupivacaine HCl (Sensorcaine Mpf 0.5%) 30 ml STK-MED ONCE .ROUTE Last administered on 05/13/19at 10:50; Start 05/13/19 at 09:40; Stop 05/13/19 at 10:40; Status DC Bupivacaine HCl/ Epinephrine Bitart (Sensorcaine-Epi 0.25%-1:[id number] Mpf) 30 ml STK-MED ONCE .ROUTE ; Start 05/13/19 at 09:41; Stop 05/13/19 at 10:41; Status DC Hydromorphone HCl (Dilaudid) 0.2 mg PRN Q4HRS PRN IVP MILD PAIN 1-3; Start 05/13/19 at 11:15 Hydromorphone HCl (Dilaudid) 0.5 mg PRN Q4HRS PRN IVP MODERATE PAIN, SEVERE PAIN Last administered on 05/14/19 23:23; Start 05/13/19 at 11:15 Labetalol HCl (Normodyne Iv Push) 10 mg PRN Q15MIN PRN IVP HYPERTENSION Last administered on 05/13/19at 12:24; Start 05/13/19 at 11:15; Stop 05/14/19 at 11:14; Status DC Hydralazine HCl (Apresoline Inj) 10 mg PRN Q4HRS PRN IVP ELEVATED BP, SEE COMMENTS Last administered on 05/15/19at 02:06; Start 05/13/19 at 17:00 Metoprolol Tartrate (Lopressor Vial) 5 mg Q6HRS IVP Last administered on 05/15/19 06:23; Start 05/13/19 at 18:00 Pantoprazole Sodium (PROTONIX VIAL for IV PUSH) 40 mg DAILYAC IVP Last administered on 05/14/19at 10:07; Start 05/13/19 at 18:00; Stop 05/14/19 at 13:12; Status DC Pantoprazole Sodium (PROTONIX VIAL for IV PUSH) 40 mg BIDAC IVP Last administered on 8/8/19at 06:23; Start 05/14/19 at 16:30 Sodium Chloride 1,000 ml @ 100 mls/hr Q10H IV Last administered on 05/15/19at 04:37; Start 05/14/19 at 18:15 Sodium Chloride 500 ml @ 500 mls/hr 1X ONCE IV Last administered on 05/15/19at 08:59; Start 05/15/19 at 07:45; Stop 05/15/19 at 08:44; Status DC Active Scripts Active Reported Fluticasone Propionate Nasal [place] (Fluticasone Propionate) 16 Gm [place].susp 2 [place] NS DAILY Pravastatin Sodium 10 Mg Tablet 1 Tab PO QHS Vitals/I & O Vital Sign - Last 24 Hours 05/14/19 05/14/19 05/14/19 05/14/19 11:00 12:41 12:41 15:00 Temp 98.2 98.2 98.2 98.2 Pulse 102 109 100 Resp 16 16 B/P (MAP) 183/102 (129) 149/65 154/68 (96) Pulse Ox 98 97 O2 Delivery Room Air Room Air Room Air 05/14/19 05/14/19 05/14/19 05/14/19 17:34 17:39 19:00 19:35 Temp 99.1 99.1 Pulse 116 110 Resp 16 B/P (MAP) 169/76 160/75 (103) Pulse Ox 97 O2 Delivery Room Air Room Air Room Air 05/14/19 05/14/19 05/14/19 05/15/19 23:17 23:23 23:23 00:40 Temp 99.4 99.4 Pulse 121 121 Resp 18 B/P (MAP) 193/92 (125) 193/92 Pulse Ox 97 O2 Delivery Room Air Room Air Room Air 05/15/19 05/15/19 05/15/19 05/15/19 00:41 02:02 02:06 03:30 Temp 98.3 98.3 Pulse 108 105 105 141 Resp 18 B/P (MAP) 179/95 (123) 181/84 (116) 181/84 192/87 (122) Pulse Ox 95 O2 Delivery Room Air Room Air Room Air 05/15/19 05/15/19 05/15/19 06:23 06:24 08:00 Pulse 126 126 B/P (MAP) 180/83 180/83 (115) O2 Delivery Room Air Room Air Intake and Output 05/14/19 05/14/19 05/15/19 14:59 22:59 06:59 Intake Total 0 ml 0 ml 0 ml Output Total 350 ml 285 ml Balance -350 ml 0 ml -285 ml VIDYA BEJARANO MD May 15, 2019 10:13
--- NOTE | 2019-05-15 10:22 | NUR ---
Orders received to D/C NG tube. Ng tube was removed by this RN. Patient tolerated procedure well.
--- NOTE | 2019-05-15 16:39 | NUR ---
SS following up with discharge planning. PT/OT recommended nursing home unit. SS met with pt to discuss nursing home unit and discharge planning. SS declined nursing home unit and reported that she would consider home healthcare. SS then received notification from pt's [employer] stating that pt notified her that she declined home healthcare and did not need services. SS will continue to follow for discharge planning.
--- NOTE | 2019-05-15 17:00 | NUR ---
Report from ADAMARIS Arce, assuming care for this pt at this time.
[2019-05-16] VITALS (7 sets, daily range): BP systolic 133–199; BP diastolic 71–103
[2019-05-16] MEDS: METOPROLOL TARTRATE 5 MG/5 ML VIAL. IVP SCH ×3 (00:07→12:03)
[2019-05-16] MEDS: IV NORMAL SALINE 1000ML BAG 1,000 ML IV SCH ×2 (00:07→10:58)
[2019-05-16 02:08] LABS: HEMOGLOBIN A1C 6.6 % (4.8-5.6)
--- NOTE | 2019-05-16 07:36 | PDOC ---
SUBJECTIVE Subjective Pt states that she is feeling better this morning. Not having pain unless she moves around. Passing gas. Pt says that she did feel a little confused earlier this morning and dizzy, but otherwise feels pretty good OBJECTIVE Vital Signs Vital Signs Date Time Temp Pulse Resp B/P (MAP) Pulse Ox O2 Delivery O2 Flow Rate FiO2 05/16/19 05:53 102 177/83 05/16/19 03:36 102 177/83 (114) 05/16/19 03:00 97.7 120 18 199/103 (135) 98 Room Air 97.7 05/16/19 00:07 62 188/86 05/15/19 22:00 97.7 41 16 144/58 (86) 95 Room Air 97.7 05/15/19 20:00 Room Air 05/15/19 19:00 97.9 109 16 166/78 (107) 97 Room Air 97.9 05/15/19 18:24 113 142/82 05/15/19 15:00 97.9 111 16 165/75 (105) 98 Room Air 97.9 05/15/19 13:08 109 162/82 05/15/19 11:00 98.2 109 16 162/82 (108) 98 Room Air 98.2 05/15/19 08:00 Room Air I & O Intake and Output 05/16/19 07:00 Output Total 240 ml Balance -240 ml Output Urine Total 150 ml Drainage Total 90 ml # Voids 6 PHYSICAL EXAM Physical Exam GEN.: No apparent distress. Alert and oriented. Mildly confused HEENT: Head is normocephalic, atraumatic, NG in place NECK: Supple. Healed scar inferior aspect of neck LUNGS: Clear to auscultation. HEART: regular rhythm, tachycardic, S1, S2 present. Peripheral pulses intact ABDOMEN: Soft, NTTP. Incisions covered, dressings C/D/I. bowel sounds present EXTREMITIES: Without any cyanosis. NEUROLOGIC: Normal speech, normal tone PSYCHIATRIC: Normal affect, normal mood. SKIN: No ulcerations ASSESSMENT/PLAN Assessment/Plan Pt is a 84yo AAF admitted for pneumoperitoneum 1)Pneumoperitoneum- 2/2 perforated gastric ulcer, s/p repair. POD#2. Pain well controlled. NG in place. Pt NPO 2)Altered mental status and SIRS+- u/a equivocal. Urine culture ordered. Pt does have a mild bandemia, will go ahead and start Cipro. Will stop if urine culture comes back normal. 2)HTN- pt has element of white coat hypertension but BP overall still not at goal. Pt is supposed to start CLD diet, so when she does we will resume her home po meds of Metoprolol 100mg ER, Losartan 50mg, and Maxzide 25/37.5mg daily. Currently receiving Metoprolol 5mg IV q6H and also receiving prn IV Hydralazine 3)Acute on CKD- likely prerenal. Pt receiving IVF hydration. Improving 4)GERD- pt on Pantoprazole IV 5)HLD- will hold pt's Atorvastatin while NPO 6)DM2- HbA1C 6.6. Will have pt f/u with Dr. Sauceda on this 7)PEM- moderate COMMENT Lab Laboratory Tests Test 05/15/19 08:53 Urine Collection Type Unknown Urine Color Green Urine Clarity Clear Urine pH 5.5 Urine Specific [place] 1.020 Urine Protein mg/dL (NEG-TRACE) Urine Glucose (UA) mg/dL (NEG) Urine Ketones (Stick) mg/dL (NEG) Urine Blood (NEG) Urine Nitrite (NEG) Urine Bilirubin (NEG) Urine Urobilinogen Dipstick mg/dL (0.2 mg/dL) Urine Leukocyte Esterase (NEG) Urine RBC Occ /HPF (0-2) Urine WBC 5-10 /HPF (0-4) Urine Squamous Epithelial Cells Occ /LPF Urine Bacteria Moderate /HPF (0-FEW) JUSTYN BAKER MD May 16, 2019 07:36
[2019-05-16 08:10] LABS: BASO % 0 % (0-3); EOS % 0 % (0-3); HEMATOCRIT 35.6 % (36.0-47.0); HEMOGLOBIN 11.8 g/dL (12.0-15.5); LYMPH # 0.9 x10^3/uL (1.0-4.8); LYMPH % 6 % (24-48); MEAN CORPUSCULAR HEMOGLOBIN 30 pg (25-35); MEAN CORPUSCULAR HGB CONC 33 g/dL (31-37); MEAN CORPUSCULAR VOLUME 89 fL (79-100); MONO # 0.8 x10^3/uL (0.0-1.1); MONO % 5 % (0-9); NEUT # 14.6 x10^3/uL (1.8-7.7); NEUT % 89 % (31-73); PLATELET COUNT 203 x10^3/uL (140-400); RED BLOOD COUNT 3.99 x10^6/uL (3.50-5.40); RED CELL DISTRIBUTION WIDTH 15.3 % (11.5-14.5); WHITE BLOOD COUNT 16.4 x10^3/uL (4.0-11.0)
[2019-05-16] MEDS: hydrALAZINE 20 MG/ML VIAL. IVP PRN ×2 (08:17→22:23)
[2019-05-16] MEDS: PANTOPRAZOLE IV PUSH 40 MG VIAL. IVP SCH ×2 (08:17→16:07)
[2019-05-16] MEDS: CIPROFLOXACIN 200MG PREMIX 100 ML IV SCH ×2 (08:18→21:05)
[2019-05-16 08:21] LABS: CALCIUM 9.3 mg/dL (8.5-10.1); GFR 63.8; POTASSIUM 3.2 mmol/L (3.5-5.1)
[2019-05-16] MEDS ORDERED: METO-247 PO (10:58)
[2019-05-16] MEDS ORDERED: TRIA1TAB3 PO (10:58)
[2019-05-16] MEDS ORDERED: LOSA-73 PO (10:58)
--- NOTE | 2019-05-16 15:03 | NUR ---
Dr. Perkins paged re: CLD started today and possible resumption of home meds.
[2019-05-16] MEDS: METOPROLOL SUCC 24HR ER 100 MG TAB.ER.24H. PO SCH (16:06)
[2019-05-16] MEDS: LOSARTAN POTASSIUM 50 MG TABLET. PO SCH (16:07)
--- NOTE | 2019-05-16 16:24 | PDOC ---
SURGICAL PROGRESS NOTE Subjective feels better, took some clears daughter at bedside Vital Signs Vital Signs Date Time Temp Pulse Resp B/P (MAP) Pulse Ox O2 Delivery O2 Flow Rate FiO2 05/16/19 16:08 111 148/71 05/16/19 15:00 97.5 18 99 Room Air 97.5 I&O Intake and Output 05/16/19 07:00 Output Total 240 ml Balance -240 ml Output Urine Total 150 ml Drainage Total 90 ml # Voids 6 PATIENT HAS A GAMEZ: No General: Alert, Oriented X3 Abdomen: Soft Labs Laboratory Tests Test 05/15/19 01:25 05/15/19 08:53 05/16/19 07:33 White Blood Count 13.9 x10^3/uL (4.0-11.0) 16.4 x10^3/uL (4.0-11.0) Red Blood Count 4.30 x10^6/uL (3.50-5.40) 3.99 x10^6/uL (3.50-5.40) Hemoglobin 12.7 g/dL (12.0-15.5) 11.8 g/dL (12.0-15.5) Hematocrit 38.9 % (36.0-47.0) 35.6 % (36.0-47.0) Mean Corpuscular Volume 91 fL (79-100) 89 fL (79-100) Mean Corpuscular Hemoglobin 30 pg (25-35) 30 pg (25-35) Mean Corpuscular Hemoglobin Concent 33 g/dL (31-37) 33 g/dL (31-37) Red Cell Distribution Width 15.6 % (11.5-14.5) 15.3 % (11.5-14.5) Platelet Count 223 x10^3/uL (140-400) 203 x10^3/uL (140-400) Neutrophils (%) (Auto) 93 % (31-73) 89 % (31-73) Lymphocytes (%) (Auto) 4 % (24-48) 6 % (24-48) Monocytes (%) (Auto) 3 % (0-9) 5 % (0-9) Eosinophils (%) (Auto) 0 % (0-3) 0 % (0-3) Basophils (%) (Auto) 0 % (0-3) 0 % (0-3) Neutrophils # (Auto) 12.9 x10^3/uL (1.8-7.7) 14.6 x10^3/uL (1.8-7.7) Lymphocytes # (Auto) 0.6 x10^3/uL (1.0-4.8) 0.9 x10^3/uL (1.0-4.8) Monocytes # (Auto) 0.4 x10^3/uL (0.0-1.1) 0.8 x10^3/uL (0.0-1.1) Eosinophils # (Auto) 0.0 x10^3/uL (0.0-0.7) 0.0 x10^3/uL (0.0-0.7) Basophils # (Auto) 0.0 x10^3/uL (0.0-0.2) 0.0 x10^3/uL (0.0-0.2) Segmented Neutrophils % 77 % (35-66) Band Neutrophils % 11 % (0-9) Lymphocytes % 9 % (24-48) Monocytes % 3 % (0-10) Platelet Estimate Adequate (ADEQUATE) Anisocytosis Slight Hemoglobin A1c 6.6 % (4.8-5.6) Lactic Acid Level 1.4 mmol/L (0.4-2.0) Urine Collection Type Unknown Urine Color Green Urine Clarity Clear Urine pH 5.5 Urine Specific [place] 1.020 Urine Protein mg/dL (NEG-TRACE) Urine Glucose (UA) mg/dL (NEG) Urine Ketones (Stick) mg/dL (NEG) Urine Blood (NEG) Urine Nitrite (NEG) Urine Bilirubin (NEG) Urine Urobilinogen Dipstick mg/dL (0.2 mg/dL) Urine Leukocyte Esterase (NEG) Urine RBC Occ /HPF (0-2) Urine WBC 5-10 /HPF (0-4) Urine Squamous Epithelial Cells Occ /LPF Urine Bacteria Moderate /HPF (0-FEW) Sodium Level 145 mmol/L (136-145) Potassium Level 3.2 mmol/L (3.5-5.1) Chloride Level 108 mmol/L (98-107) Carbon Dioxide Level 25 mmol/L (21-32) Anion Gap 12 (6-14) Blood Urea Nitrogen 25 mg/dL (7-20) Creatinine 1.0 mg/dL (0.6-1.0) Estimated GFR (Cockcroft-Gault) 63.8 Glucose Level 116 mg/dL (70-99) Calcium Level 9.3 mg/dL (8.5-10.1) Laboratory Tests Test 05/16/19 07:33 White Blood Count 16.4 x10^3/uL (4.0-11.0) Red Blood Count 3.99 x10^6/uL (3.50-5.40) Hemoglobin 11.8 g/dL (12.0-15.5) Hematocrit 35.6 % (36.0-47.0) Mean Corpuscular Volume 89 fL (79-100) Mean Corpuscular Hemoglobin 30 pg (25-35) Mean Corpuscular Hemoglobin Concent 33 g/dL (31-37) Red Cell Distribution Width 15.3 % (11.5-14.5) Platelet Count 203 x10^3/uL (140-400) Neutrophils (%) (Auto) 89 % (31-73) Lymphocytes (%) (Auto) 6 % (24-48) Monocytes (%) (Auto) 5 % (0-9) Eosinophils (%) (Auto) 0 % (0-3) Basophils (%) (Auto) 0 % (0-3) Neutrophils # (Auto) 14.6 x10^3/uL (1.8-7.7) Lymphocytes # (Auto) 0.9 x10^3/uL (1.0-4.8) Monocytes # (Auto) 0.8 x10^3/uL (0.0-1.1) Eosinophils # (Auto) 0.0 x10^3/uL (0.0-0.7) Basophils # (Auto) 0.0 x10^3/uL (0.0-0.2) Sodium Level 145 mmol/L (136-145) Potassium Level 3.2 mmol/L (3.5-5.1) Chloride Level 108 mmol/L (98-107) Carbon Dioxide Level 25 mmol/L (21-32) Anion Gap 12 (6-14) Blood Urea Nitrogen 25 mg/dL (7-20) Creatinine 1.0 mg/dL (0.6-1.0) Estimated GFR (Cockcroft-Gault) 63.8 Glucose Level 116 mg/dL (70-99) Calcium Level 9.3 mg/dL (8.5-10.1) Problem List Problems Medical Problems: (1) Abdominal pain Status: Acute (2) Acute kidney injury superimposed on CKD Status: Acute (3) GERD (gastroesophageal reflux disease) Status: Chronic (4) HLD (hyperlipidemia) Status: Chronic (5) HTN (hypertension) Status: Chronic (6) PP (pneumoperitoneum) Status: Acute Assessment/Plan POD 3 closure perforated ulcer slow IV advance to full liquids RADHA TORREZ MD May 16, 2019 16:24
[2019-05-16] MEDS: ATORVASTATIN CALCIUM 10 MG TABLET. PO SCH (21:05)
[2019-05-17] MEDS: IV NORMAL SALINE 1000ML BAG 1,000 ML IV SCH ×2 (02:38→17:15)
[2019-05-17 03:00] VITALS: BP 172/76
[2019-05-17 05:43] LABS: BASO % 0 % (0-3); EOS # 0.1 x10^3/uL (0.0-0.7); EOS % 1 % (0-3); HEMATOCRIT 34.2 % (36.0-47.0); HEMOGLOBIN 11.4 g/dL (12.0-15.5); LYMPH # 1.3 x10^3/uL (1.0-4.8); LYMPH % 10 % (24-48); MEAN CORPUSCULAR HEMOGLOBIN 30 pg (25-35); MEAN CORPUSCULAR HGB CONC 34 g/dL (31-37); MEAN CORPUSCULAR VOLUME 89 fL (79-100); MONO # 1.1 x10^3/uL (0.0-1.1); MONO % 9 % (0-9); NEUT # 9.9 x10^3/uL (1.8-7.7); NEUT % 80 % (31-73); PLATELET COUNT 192 x10^3/uL (140-400); RED BLOOD COUNT 3.86 x10^6/uL (3.50-5.40); RED CELL DISTRIBUTION WIDTH 15.1 % (11.5-14.5); WHITE BLOOD COUNT 12.4 x10^3/uL (4.0-11.0)
[2019-05-17 05:49] LABS: CALCIUM 9.2 mg/dL (8.5-10.1); GFR 63.8
[2019-05-17 07:00] VITALS: BP 150/82
[2019-05-17] MEDS: PANTOPRAZOLE 40 MG TABLET.DR. PO SCH ×2 (08:39→17:10)
[2019-05-17] MEDS: METOPROLOL SUCC 24HR ER 100 MG TAB.ER.24H. PO SCH (08:41)
[2019-05-17] MEDS: LOSARTAN POTASSIUM 50 MG TABLET. PO SCH (08:41)
[2019-05-17] MEDS: CIPROFLOXACIN 200MG PREMIX 100 ML IV SCH ×2 (08:44→20:57)
--- NOTE | 2019-05-17 08:48 | PDOC ---
SUBJECTIVE Subjective Pt sitting up in chair and has just finished her breakfast. States that she is doing well. Denies pain. Has no complaints this morning OBJECTIVE Vital Signs Vital Signs Date Time Temp Pulse Resp B/P (MAP) Pulse Ox O2 Delivery O2 Flow Rate FiO2 05/17/19 07:00 98.0 110 18 150/82 (104) 99 Room Air 98.0 05/17/19 03:00 98.4 116 19 172/76 (108) 96 Room Air 10.0 98.4 05/16/19 23:01 98.7 109 18 190/81 (117) 96 Room Air 98.7 05/16/19 22:23 109 190/81 05/16/19 20:00 Room Air 05/16/19 19:00 97.7 99 16 158/78 (104) 98 Room Air 97.7 05/16/19 16:08 111 148/71 05/16/19 16:08 111 148/71 05/16/19 15:00 97.5 111 18 148/71 (96) 99 Room Air 97.5 05/16/19 12:04 150 133/76 05/16/19 11:00 97.9 150 20 133/76 (95) 99 Room Air 97.9 I & O Intake and Output 05/17/19 06:59 Output Total 1330 ml Balance -1330 ml Output Urine Total 1300 ml Drainage Total 30 ml # Voids 2 PHYSICAL EXAM Physical Exam GEN.: No apparent distress. Alert and oriented. HEENT: Head is normocephalic, atraumatic, NG in place NECK: Supple. Healed scar inferior aspect of neck LUNGS: Clear to auscultation. HEART: regular rhythm, tachycardic, S1, S2 present. Peripheral pulses intact ABDOMEN: Soft, NTTP. Incisions covered, dressings C/D/I. bowel sounds present EXTREMITIES: Without any cyanosis. NEUROLOGIC: Normal speech, normal tone PSYCHIATRIC: Normal affect, normal mood. SKIN: No ulcerations ASSESSMENT/PLAN Assessment/Plan Pt is a 84yo AAF admitted for pneumoperitoneum 1)Pneumoperitoneum- 2/2 perforated gastric ulcer, s/p repair. POD#4. Pain well controlled. NG out. Pt tolerating diet well. Passing gas, feels like she needs to have a bowel movement 2)Altered mental status and SIRS+- u/a equivocal. Urine culture ordered. Pt had a mild bandemia, started on Cipro. Pt's WBC has improved from 16.4 to 12.4. Will stop if urine culture comes back normal. 2)HTN- pt has element of white coat hypertension but BP overall still not at goal. BP this morning was a little better with systolic BP of 150. Pt resumed on home po meds of Metoprolol 100mg ER and Losartan 50mg, will restart Maxzide 25/37.5mg this morning. Has prn IV hydralazine. 3)Acute on CKD- likely prerenal. Pt receiving IVF hydration. Resolved 4)GERD- pt on Pantoprazole IV 5)HLD- restarted pt's Atorvastatin 6)DM2- HbA1C 6.6. Will have pt f/u with Dr. Sauceda on this 7)PEM- moderate COMMENT Lab Laboratory Tests Test 05/17/19 04:50 White Blood Count 12.4 x10^3/uL (4.0-11.0) Red Blood Count 3.86 x10^6/uL (3.50-5.40) Hemoglobin 11.4 g/dL (12.0-15.5) Hematocrit 34.2 % (36.0-47.0) Mean Corpuscular Volume 89 fL (79-100) Mean Corpuscular Hemoglobin 30 pg (25-35) Mean Corpuscular Hemoglobin Concent 34 g/dL (31-37) Red Cell Distribution Width 15.1 % (11.5-14.5) Platelet Count 192 x10^3/uL (140-400) Neutrophils (%) (Auto) 80 % (31-73) Lymphocytes (%) (Auto) 10 % (24-48) Monocytes (%) (Auto) 9 % (0-9) Eosinophils (%) (Auto) 1 % (0-3) Basophils (%) (Auto) 0 % (0-3) Neutrophils # (Auto) 9.9 x10^3/uL (1.8-7.7) Lymphocytes # (Auto) 1.3 x10^3/uL (1.0-4.8) Monocytes # (Auto) 1.1 x10^3/uL (0.0-1.1) Eosinophils # (Auto) 0.1 x10^3/uL (0.0-0.7) Basophils # (Auto) 0.0 x10^3/uL (0.0-0.2) Sodium Level 144 mmol/L (136-145) Potassium Level 3.0 mmol/L (3.5-5.1) Chloride Level 109 mmol/L (98-107) Carbon Dioxide Level 26 mmol/L (21-32) Anion Gap 9 (6-14) Blood Urea Nitrogen 23 mg/dL (7-20) Creatinine 1.0 mg/dL (0.6-1.0) Estimated GFR (Cockcroft-Gault) 63.8 Glucose Level 154 mg/dL (70-99) Calcium Level 9.2 mg/dL (8.5-10.1) JUSTYN BAKER MD May 17, 2019 08:48
[2019-05-17] MEDS ORDERED: METOPROLOL SUCC 24HR ER 100 MG TAB.ER.24H. PO SCH (09:00)
[2019-05-17] MEDS ORDERED: LOSARTAN POTASSIUM 50 MG TABLET. PO SCH (09:00)
[2019-05-17] MEDS ORDERED: POTASSIUM CHLORIDE 20 MEQ TABLET.ER. PO ONE (09:00)
[2019-05-17] MEDS: TRIAMTERENE/HCTZ 37.5/25MG TABLET. PO SCH (09:29)
--- NOTE | 2019-05-17 10:42 | PDOC ---
SURGICAL PROGRESS NOTE Subjective Lore Falcon no c/o took full liquid breakfast Vital Signs Vital Signs Date Time Temp Pulse Resp B/P (MAP) Pulse Ox O2 Delivery O2 Flow Rate FiO2 05/17/19 08:44 110 150/82 05/17/19 07:00 98.0 18 99 Room Air 98.0 05/17/19 03:00 10.0 I&O Intake and Output 05/17/19 06:59 Output Total 1330 ml Balance -1330 ml Output Urine Total 1300 ml Drainage Total 30 ml # Voids 2 PATIENT HAS A GAMEZ: No General: Alert, No acute distress Abdomen: Soft Labs Laboratory Tests Test 05/16/19 07:33 05/17/19 04:50 White Blood Count 16.4 x10^3/uL (4.0-11.0) 12.4 x10^3/uL (4.0-11.0) Red Blood Count 3.99 x10^6/uL (3.50-5.40) 3.86 x10^6/uL (3.50-5.40) Hemoglobin 11.8 g/dL (12.0-15.5) 11.4 g/dL (12.0-15.5) Hematocrit 35.6 % (36.0-47.0) 34.2 % (36.0-47.0) Mean Corpuscular Volume 89 fL (79-100) 89 fL (79-100) Mean Corpuscular Hemoglobin 30 pg (25-35) 30 pg (25-35) Mean Corpuscular Hemoglobin Concent 33 g/dL (31-37) 34 g/dL (31-37) Red Cell Distribution Width 15.3 % (11.5-14.5) 15.1 % (11.5-14.5) Platelet Count 203 x10^3/uL (140-400) 192 x10^3/uL (140-400) Neutrophils (%) (Auto) 89 % (31-73) 80 % (31-73) Lymphocytes (%) (Auto) 6 % (24-48) 10 % (24-48) Monocytes (%) (Auto) 5 % (0-9) 9 % (0-9) Eosinophils (%) (Auto) 0 % (0-3) 1 % (0-3) Basophils (%) (Auto) 0 % (0-3) 0 % (0-3) Neutrophils # (Auto) 14.6 x10^3/uL (1.8-7.7) 9.9 x10^3/uL (1.8-7.7) Lymphocytes # (Auto) 0.9 x10^3/uL (1.0-4.8) 1.3 x10^3/uL (1.0-4.8) Monocytes # (Auto) 0.8 x10^3/uL (0.0-1.1) 1.1 x10^3/uL (0.0-1.1) Eosinophils # (Auto) 0.0 x10^3/uL (0.0-0.7) 0.1 x10^3/uL (0.0-0.7) Basophils # (Auto) 0.0 x10^3/uL (0.0-0.2) 0.0 x10^3/uL (0.0-0.2) Sodium Level 145 mmol/L (136-145) 144 mmol/L (136-145) Potassium Level 3.2 mmol/L (3.5-5.1) 3.0 mmol/L (3.5-5.1) Chloride Level 108 mmol/L (98-107) 109 mmol/L (98-107) Carbon Dioxide Level 25 mmol/L (21-32) 26 mmol/L (21-32) Anion Gap 12 (6-14) 9 (6-14) Blood Urea Nitrogen 25 mg/dL (7-20) 23 mg/dL (7-20) Creatinine 1.0 mg/dL (0.6-1.0) 1.0 mg/dL (0.6-1.0) Estimated GFR (Cockcroft-Gault) 63.8 63.8 Glucose Level 116 mg/dL (70-99) 154 mg/dL (70-99) Calcium Level 9.3 mg/dL (8.5-10.1) 9.2 mg/dL (8.5-10.1) Laboratory Tests Test 05/17/19 04:50 White Blood Count 12.4 x10^3/uL (4.0-11.0) Red Blood Count 3.86 x10^6/uL (3.50-5.40) Hemoglobin 11.4 g/dL (12.0-15.5) Hematocrit 34.2 % (36.0-47.0) Mean Corpuscular Volume 89 fL (79-100) Mean Corpuscular Hemoglobin 30 pg (25-35) Mean Corpuscular Hemoglobin Concent 34 g/dL (31-37) Red Cell Distribution Width 15.1 % (11.5-14.5) Platelet Count 192 x10^3/uL (140-400) Neutrophils (%) (Auto) 80 % (31-73) Lymphocytes (%) (Auto) 10 % (24-48) Monocytes (%) (Auto) 9 % (0-9) Eosinophils (%) (Auto) 1 % (0-3) Basophils (%) (Auto) 0 % (0-3) Neutrophils # (Auto) 9.9 x10^3/uL (1.8-7.7) Lymphocytes # (Auto) 1.3 x10^3/uL (1.0-4.8) Monocytes # (Auto) 1.1 x10^3/uL (0.0-1.1) Eosinophils # (Auto) 0.1 x10^3/uL (0.0-0.7) Basophils # (Auto) 0.0 x10^3/uL (0.0-0.2) Sodium Level 144 mmol/L (136-145) Potassium Level 3.0 mmol/L (3.5-5.1) Chloride Level 109 mmol/L (98-107) Carbon Dioxide Level 26 mmol/L (21-32) Anion Gap 9 (6-14) Blood Urea Nitrogen 23 mg/dL (7-20) Creatinine 1.0 mg/dL (0.6-1.0) Estimated GFR (Cockcroft-Gault) 63.8 Glucose Level 154 mg/dL (70-99) Calcium Level 9.2 mg/dL (8.5-10.1) Problem List Problems Medical Problems: (1) Abdominal pain Status: Acute (2) Acute kidney injury superimposed on CKD Status: Acute (3) GERD (gastroesophageal reflux disease) Status: Chronic (4) HLD (hyperlipidemia) Status: Chronic (5) HTN (hypertension) Status: Chronic (6) PP (pneumoperitoneum) Status: Acute Assessment/Plan POD 4 l/s closure of perforated ulcer continue supportive care LORE,RADHA V MD May 17, 2019 10:42
[2019-05-17 11:00] VITALS: BP 144/75
[2019-05-17 15:00] VITALS: BP 162/80
[2019-05-17 19:00] VITALS: BP 164/80
[2019-05-17] MEDS: hydrALAZINE 20 MG/ML VIAL. IVP PRN (20:17)
[2019-05-17] MEDS: ATORVASTATIN CALCIUM 10 MG TABLET. PO SCH (20:55)
[2019-05-17] MEDS: LACTOBACILLUS RHAMNOSUS GG 1 CAPSULE. PO SCH (20:55)
[2019-05-17 23:00] VITALS: BP 154/78
[2019-05-18 03:00] VITALS: BP 168/78
[2019-05-18 06:42] LABS: CALCIUM 9.2 mg/dL (8.5-10.1); GFR 63.8; POTASSIUM 3.5 mmol/L (3.5-5.1)
[2019-05-18 06:55] LABS: BASO % 0 % (0-3); EOS # 0.1 x10^3/uL (0.0-0.7); EOS % 1 % (0-3); HEMATOCRIT 36.3 % (36.0-47.0); HEMOGLOBIN 12.1 g/dL (12.0-15.5); LYMPH % 16 % (24-48); MEAN CORPUSCULAR HEMOGLOBIN 29 pg (25-35); MEAN CORPUSCULAR HGB CONC 33 g/dL (31-37); MEAN CORPUSCULAR VOLUME 88 fL (79-100); MONO % 8 % (0-9); NEUT # 9.5 x10^3/uL (1.8-7.7); NEUT % 75 % (31-73); PLATELET COUNT 216 x10^3/uL (140-400); RED BLOOD COUNT 4.11 x10^6/uL (3.50-5.40); RED CELL DISTRIBUTION WIDTH 15.4 % (11.5-14.5); WHITE BLOOD COUNT 12.6 x10^3/uL (4.0-11.0)
[2019-05-18 07:00] VITALS: BP 145/82
[2019-05-18] MEDS: METOPROLOL SUCC 24HR ER 100 MG TAB.ER.24H. PO SCH (09:21)
[2019-05-18] MEDS: LOSARTAN POTASSIUM 50 MG TABLET. PO SCH (09:21)
[2019-05-18] MEDS: PANTOPRAZOLE 40 MG TABLET.DR. PO SCH ×2 (09:21→16:51)
[2019-05-18] MEDS: TRIAMTERENE/HCTZ 37.5/25MG TABLET. PO SCH (09:21)
[2019-05-18] MEDS: LACTOBACILLUS RHAMNOSUS GG 1 CAPSULE. PO SCH ×2 (09:22→20:35)
[2019-05-18] MEDS: CIPROFLOXACIN 200MG PREMIX 100 ML IV SCH ×2 (09:24→20:36)
--- NOTE | 2019-05-18 10:05 | PDOC ---
SUBJECTIVE Subjective Pt doing well this morning. Had a good sized bowel movement. Had some ab dominal cramping prior to that but this has resolved. Denies nausea, vomiting. OBJECTIVE Vital Signs Vital Signs Date Time Temp Pulse Resp B/P (MAP) Pulse Ox O2 Delivery O2 Flow Rate FiO2 05/18/19 09:25 110 145/82 05/18/19 09:25 110 145/82 05/18/19 07:00 97.8 110 16 145/82 (103) 99 Room Air 97.8 05/18/19 03:00 97.7 93 18 168/78 (108) 97 Room Air 97.7 05/17/19 23:00 98.1 103 18 154/78 (103) 96 Room Air 98.1 05/17/19 20:17 110 164/80 05/17/19 20:05 Room Air 05/17/19 19:00 98.1 110 18 164/80 (108) 98 Room Air 98.1 05/17/19 15:00 98.0 103 18 162/80 (107) 99 Room Air 98.0 05/17/19 11:00 97.9 109 18 144/75 (98) 99 Room Air 97.9 I & O Intake and Output 05/18/19 06:59 Intake Total 1140 ml Output Total 101 ml Balance 1039 ml Intake Oral 440 ml IV Total 350 ml Other 350 ml Stool Total 1 ml Drainage Total 100 ml # Voids 6 # Bowel Movements 1 PHYSICAL EXAM Physical Exam GEN.: No apparent distress. Alert and oriented. HEENT: Head is normocephalic, atraumatic NECK: Supple. Healed scar inferior aspect of neck LUNGS: Clear to auscultation. HEART: regular rhythm, tachycardic, S1, S2 present. Peripheral pulses intact ABDOMEN: Soft, NTTP. Incisions covered, dressings C/D/I. bowel sounds present EXTREMITIES: Without any cyanosis. NEUROLOGIC: Normal speech, normal tone PSYCHIATRIC: Normal affect, normal mood. SKIN: No ulcerations ASSESSMENT/PLAN Assessment/Plan Pt is a 84yo AAF admitted for pneumoperitoneum 1)Pneumoperitoneum- 2/2 perforated gastric ulcer, s/p repair. POD#5. Pain well controlled. NG out. Pt tolerating diet well. Has had a bowel movement. 2)Altered mental status and SIRS+- likely 2/2 UTI. Urine cx has showed growth of Ecoli, sensitivity pending. Pt has been on Ciprofloxacin for several days now. Pt's WBC count has improved from 16.4 to 12.6. 2)HTN- pt has element of white coat hypertension. BP overall improved but still elevated. Will continue Metoprolol 100mg ER and Losartan 50mg, and Maxzide 25/37.5mg this morning. Has prn IV hydralazine, received last dose last night. Will increase Losartan to 100mg 3)Acute on CKD- likely prerenal. Pt received IVF hydration. Resolved. 4)GERD- pt on Pantoprazole IV 5)HLD- restarted pt's Atorvastatin 6)DM2- HbA1C 6.6. Will have pt f/u with Dr. Sauceda on this 7)PEM- moderate COMMENT Lab Laboratory Tests Test 05/18/19 05:55 White Blood Count 12.6 x10^3/uL (4.0-11.0) Red Blood Count 4.11 x10^6/uL (3.50-5.40) Hemoglobin 12.1 g/dL (12.0-15.5) Hematocrit 36.3 % (36.0-47.0) Mean Corpuscular Volume 88 fL (79-100) Mean Corpuscular Hemoglobin 29 pg (25-35) Mean Corpuscular Hemoglobin Concent 33 g/dL (31-37) Red Cell Distribution Width 15.4 % (11.5-14.5) Platelet Count 216 x10^3/uL (140-400) Neutrophils (%) (Auto) 75 % (31-73) Lymphocytes (%) (Auto) 16 % (24-48) Monocytes (%) (Auto) 8 % (0-9) Eosinophils (%) (Auto) 1 % (0-3) Basophils (%) (Auto) 0 % (0-3) Neutrophils # (Auto) 9.5 x10^3/uL (1.8-7.7) Lymphocytes # (Auto) 2.0 x10^3/uL (1.0-4.8) Monocytes # (Auto) 1.0 x10^3/uL (0.0-1.1) Eosinophils # (Auto) 0.1 x10^3/uL (0.0-0.7) Basophils # (Auto) 0.0 x10^3/uL (0.0-0.2) Sodium Level 140 mmol/L (136-145) Potassium Level 3.5 mmol/L (3.5-5.1) Chloride Level 105 mmol/L (98-107) Carbon Dioxide Level 23 mmol/L (21-32) Anion Gap 12 (6-14) Blood Urea Nitrogen 17 mg/dL (7-20) Creatinine 1.0 mg/dL (0.6-1.0) Estimated GFR (Cockcroft-Gault) 63.8 Glucose Level 166 mg/dL (70-99) Calcium Level 9.2 mg/dL (8.5-10.1) JUSTYN BAKER MD May 18, 2019 10:05
[2019-05-18] MEDS ORDERED: LOSARTAN POTASSIUM 50 MG TABLET. PO ONE (10:15)
[2019-05-18 11:00] VITALS: BP 145/84
[2019-05-18] MEDS ORDERED: ZOLPIDEM 5 MG TABLET. PO PRN (14:30)
[2019-05-18 15:00] VITALS: BP 142/78
[2019-05-18] MEDS: IV NORMAL SALINE 1000ML BAG 1,000 ML IV SCH (16:55)
[2019-05-18 19:00] VITALS: BP 174/77
[2019-05-18] MEDS: ATORVASTATIN CALCIUM 10 MG TABLET. PO SCH (20:35)
[2019-05-18] MEDS: hydrALAZINE 20 MG/ML VIAL. IVP PRN (20:36)
[2019-05-18 23:00] VITALS: BP 157/75
--- NOTE | 2019-05-19 01:08 | NUR ---
During 2100 med-pass, this nurse gave pt. mela but pt. dropped and lost 1/2 of it (this nurse accidentally broke it in half while trying to take it out of packaging) around her bed. This nurse grabbed a new pill for pt.
[2019-05-19 03:00] VITALS: BP 151/84
[2019-05-19] MEDS: PANTOPRAZOLE 40 MG TABLET.DR. PO SCH (06:26)
[2019-05-19 07:00] VITALS: BP 150/86
--- NOTE | 2019-05-19 08:31 | PDOC ---
PROGRESS NOTES Subjective Subjective Patient without complaint, pleased to be going home today. Objective Objective Vital Signs Date Time Temp Pulse Resp B/P (MAP) Pulse Ox O2 Delivery O2 Flow Rate FiO2 05/19/19 07:59 Room Air 05/19/19 07:00 97.8 71 16 150/86 (107) 99 97.8 05/17/19 03:00 10.0 Intake and Output 05/19/19 06:59 Intake Total 50 ml Balance 50 ml IV Total 50 ml # Voids 7 Physical Exam Abdomen: Normal bowel sounds, Soft, No tenderness Heart: Regular rate Extremities: No edema General: Alert, Oriented X3, No acute distress Lungs: Clear to auscultation Assessment Assessment Problems Medical Problems: (1) Abdominal pain Status: Acute (2) Acute kidney injury superimposed on CKD Status: Acute (3) GERD (gastroesophageal reflux disease) Status: Chronic (4) HLD (hyperlipidemia) Status: Chronic (5) HTN (hypertension) Status: Chronic (6) PP (pneumoperitoneum) Status: Acute Plan Plan of Care 1. Perforated gastric ulcer, POD #6 repair - doing well, home today on BID Protonix x 1 month. Advised to d/c her home ASA. 2. UTI - mild infection present, E coli sensitive to Cipro. Home on Cipro to complete 5 days of tx. 3. HTN - labile due to anxiety. Home on her usual medications. 4. hyperglycemia - patient with hx of glucose intolerance, reports she had not been watching her diet at home very well but will work on this. Follow as outpatient. Comment Review of Relevant I have reviewed the following items juan j (where applicable) has been applied. Labs Laboratory Tests Test 05/18/19 05:55 White Blood Count 12.6 x10^3/uL (4.0-11.0) Red Blood Count 4.11 x10^6/uL (3.50-5.40) Hemoglobin 12.1 g/dL (12.0-15.5) Hematocrit 36.3 % (36.0-47.0) Mean Corpuscular Volume 88 fL (79-100) Mean Corpuscular Hemoglobin 29 pg (25-35) Mean Corpuscular Hemoglobin Concent 33 g/dL (31-37) Red Cell Distribution Width 15.4 % (11.5-14.5) Platelet Count 216 x10^3/uL (140-400) Neutrophils (%) (Auto) 75 % (31-73) Lymphocytes (%) (Auto) 16 % (24-48) Monocytes (%) (Auto) 8 % (0-9) Eosinophils (%) (Auto) 1 % (0-3) Basophils (%) (Auto) 0 % (0-3) Neutrophils # (Auto) 9.5 x10^3/uL (1.8-7.7) Lymphocytes # (Auto) 2.0 x10^3/uL (1.0-4.8) Monocytes # (Auto) 1.0 x10^3/uL (0.0-1.1) Eosinophils # (Auto) 0.1 x10^3/uL (0.0-0.7) Basophils # (Auto) 0.0 x10^3/uL (0.0-0.2) Sodium Level 140 mmol/L (136-145) Potassium Level 3.5 mmol/L (3.5-5.1) Chloride Level 105 mmol/L (98-107) Carbon Dioxide Level 23 mmol/L (21-32) Anion Gap 12 (6-14) Blood Urea Nitrogen 17 mg/dL (7-20) Creatinine 1.0 mg/dL (0.6-1.0) Estimated GFR (Cockcroft-Gault) 63.8 Glucose Level 166 mg/dL (70-99) Calcium Level 9.2 mg/dL (8.5-10.1) Microbiology 05/15/19 Urine Culture - Final, Complete 05/15/19 Urine Culture Result 1 (JU) - Final, Complete 05/15/19 Antimicrobic Susceptibility - Final, Complete 05/15/19 Blood Culture - Preliminary, Resulted NO GROWTH AFTER 4 DAYS Medications Current Medications Fentanyl Citrate (Fentanyl 2ml Vial) 50 mcg 1X ONCE IV ; Start 05/13/19 at 08:15; Stop 05/13/19 at 08:16; Status DC Ondansetron HCl (Zofran) 4 mg 1X ONCE IV ; Start 05/13/19 at 08:15; Stop 05/13/19 at 08:16; Status DC Sodium Chloride 500 ml @ 500 mls/hr 1X ONCE IV ; Start 05/13/19 at 08:15; Stop 05/13/19 at 09:14; Status DC Morphine Sulfate (Morphine Sulfate) 4 mg 1X ONCE IV ; Start 05/13/19 at 08:15; Stop 05/13/19 at 08:16; Status DC Piperacillin Sod/ Tazobactam Sod 4.5 gm/Sodium Chloride 100 ml @ 200 mls/hr 1X ONCE IV ; Start 05/13/19 at 08:15; Stop 05/13/19 at 08:44; Status DC Ondansetron HCl (Zofran) 4 mg PRN Q6HRS PRN IV NAUSEA/VOMITING; Start 05/13/19 at 08:30; Stop 05/14/19 at 08:29; Status DC Fentanyl Citrate (Fentanyl 2ml Vial) 25 mcg PRN Q5MIN PRN IV MILD PAIN 1-3; Start 05/13/19 at 08:30; Stop 05/14/19 at 08:29; Status DC Fentanyl Citrate (Fentanyl 2ml Vial) 50 mcg PRN Q5MIN PRN IV MODERATE TO SEVERE PAIN; Start 05/13/19 at 08:30; Stop 05/14/19 at 08:29; Status DC Morphine Sulfate (Morphine Sulfate) 1 mg PRN Q10MIN PRN IV SEVERE PAIN 7-10; Start 05/13/19 at 08:30; Stop 05/14/19 at 08:29; Status DC Ringer's Solution 1,000 ml @ 30 mls/hr Q24H IV ; Start 05/13/19 at 08:16; Stop 05/13/19 at 20:15; Status DC Lidocaine HCl (Xylocaine-Mpf 1% 2ml Vial) 2 ml 1X PRN PRN ID IV START; Start 05/13/19 at 08:30; Stop 05/14/19 at 08:29; Status DC Hydromorphone HCl (Dilaudid) 0.5 mg PRN Q10MIN PRN IV SEV PAIN, Second choice; Start 05/13/19 at 08:30; Stop 05/14/19 at 08:29; Status DC Prochlorperazine Edisylate (Compazine) 5 mg PACU PRN PRN IV NAUSEA, MRX1; Start 05/13/19 at 08:30; Stop 05/14/19 at 08:29; Status DC Ondansetron HCl (Zofran) 4 mg STK-MED ONCE .ROUTE ; Start 05/13/19 at 08:38; Stop 05/13/19 at 08:38; Status DC Propofol 20 ml @ As Directed STK-MED ONCE IV ; Start 05/13/19 at 08:38; Stop 05/13/19 at 08:38; Status DC Lidocaine HCl (Lidocaine Pf 2% Vial) 5 ml STK-MED ONCE .ROUTE ; Start 05/13/19 at 08:38; Stop 05/13/19 at 08:38; Status DC Dexamethasone Sodium Phosphate (Decadron) 4 mg STK-MED ONCE .ROUTE ; Start 05/13/19 at 08:38; Stop 05/13/19 at 08:38; Status DC Fentanyl Citrate (Fentanyl 2ml Vial) 100 mcg STK-MED ONCE .ROUTE ; Start 05/13/19 at 08:38; Stop 05/13/19 at 08:38; Status DC Rocuronium [place] (Zemuron) 100 mg STK-MED ONCE .ROUTE ; Start 05/13/19 at 08:39; Stop 05/13/19 at 08:39; Status DC Succinylcholine Chloride (Anectine) 200 mg STK-MED ONCE .ROUTE ; Start 05/13/19 at 08:39; Stop 05/13/19 at 08:39; Status DC Hydrocortisone Sodium Succinate (Solu-CORTEF) 100 mg STK-MED ONCE .ROUTE ; Start 05/13/19 at 08:55; Stop 05/13/19 at 08:55; Status DC Phenylephrine HCl (PHENYLEPHRINE in 0.9% NACL PF) 1 mg STK-MED ONCE IV ; Start 05/13/19 at 09:19; Stop 05/13/19 at 09:20; Status DC Phenylephrine HCl (Danielito-Synephrine Inj) 10 mg STK-MED ONCE .ROUTE ; Start 05/13/19 at 09:19; Stop 05/13/19 at 09:20; Status DC Ephedrine Sulfate (ePHEDrine PF IN SALINE SYRINGE) 50 mg STK-MED ONCE IV ; Start 05/13/19 at 09:19; Stop 05/13/19 at 09:20; Status DC Neostigmine Methylsulfate (Bloxiverz) 10 mg STK-MED ONCE .ROUTE ; Start 05/13/19 at 09:53; Stop 05/13/19 at 09:54; Status DC Glycopyrrolate (Robinul) 1 mg STK-MED ONCE .ROUTE ; Start 05/13/19 at 09:53; Stop 05/13/19 at 09:54; Status DC Methylene Blue (Methylene Blue) 1 ml STK-MED ONCE .ROUTE ; Start 05/13/19 at 09:12; Stop 05/13/19 at 10:12; Status DC Bupivacaine HCl (Sensorcaine Mpf 0.5%) 30 ml STK-MED ONCE .ROUTE Last administered on 05/13/19at 10:50; Start 05/13/19 at 09:40; Stop 05/13/19 at 10:40; Status DC Bupivacaine HCl/ Epinephrine Bitart (Sensorcaine-Epi 0.25%-1:[id number] Mpf) 30 ml STK-MED ONCE .ROUTE ; Start 05/13/19 at 09:41; Stop 05/13/19 at 10:41; Status DC Hydromorphone HCl (Dilaudid) 0.2 mg PRN Q4HRS PRN IVP MILD PAIN 1-3; Start 05/13/19 at 11:15 Hydromorphone HCl (Dilaudid) 0.5 mg PRN Q4HRS PRN IVP MODERATE PAIN, SEVERE PAIN Last administered on 05/14/19at 23:23; Start 05/13/19 at 11:15 Labetalol HCl (Normodyne Iv Push) 10 mg PRN Q15MIN PRN IVP HYPERTENSION Last administered on 05/13/19at 12:24; Start 05/13/19 at 11:15; Stop 05/14/19 at 11:14; Status DC Hydralazine HCl (Apresoline Inj) 10 mg PRN Q4HRS PRN IVP ELEVATED BP, SEE COMMENTS Last administered on 05/18/19at 20:37; Start 05/13/19 at 17:00 Metoprolol Tartrate (Lopressor Vial) 5 mg Q6HRS IVP Last administered on 05/16/19at 12:04; Start 05/13/19 at 18:00; Stop 05/16/19 at 15:39; Status DC Pantoprazole Sodium (PROTONIX VIAL for IV PUSH) 40 mg DAILYAC IVP Last administered on 05/14/19at 10:07; Start 05/13/19 at 18:00; Stop 05/14/19 at 13:12; Status DC Pantoprazole Sodium (PROTONIX VIAL for IV PUSH) 40 mg BIDAC IVP Last administered on 05/16/19 16:08; Start 05/14/19 at 16:30; Stop 05/16/19 at 16:45; Status DC Sodium Chloride 1,000 ml @ 50 mls/hr Q20H IV Last administered on 05/18/19 16:55; Start 05/14/19 at 18:15 Sodium Chloride 500 ml @ 500 mls/hr 1X ONCE IV Last administered on 05/15/19 08:59; Start 05/15/19 at 07:45; Stop 05/15/19 at 08:44; Status DC Ciprofloxacin/ Dextrose 100 ml @ 100 mls/hr Q12HR IV Last administered on 05/18/19 20:37; Start 05/16/19 at 09:00 Losartan Potassium (Cozaar) 50 mg DAILY PO ; Start 05/17/19 at 09:00; Stop 05/16/19 at 15:45; Status DC Metoprolol Succinate (Toprol Xl) 100 mg DAILY PO ; Start 05/17/19 at 09:00; Stop 05/16/19 at 15:45; Status DC Atorvastatin Calcium (Lipitor) 10 mg QHS PO Last administered on 05/18/19 20:37; Start 05/16/19 at 21:00 Losartan Potassium (Cozaar) 50 mg DAILY PO Last administered on 05/18/19 09:25; Start 05/16/19 at 15:45; Stop 05/18/19 at 10:04; Status DC Metoprolol Succinate (Toprol Xl) 100 mg DAILY PO Last administered on 05/18/19 09:25; Start 05/16/19 at 15:45 Pantoprazole Sodium (Protonix) 40 mg BIDAC PO Last administered on 05/19/19 06:26; Start 05/17/19 at 07:30 Triamterene/HCTZ (Maxzide 37.5/ 25mg) 1 tab DAILY PO Last administered on 05/18/19 09:25; Start 05/17/19 at 09:00 Potassium Chloride (Klor-Con) 40 meq 1X ONCE PO Last administered on 05/17/19 09:30; Start 05/17/19 at 09:00; Stop 05/17/19 at 09:04; Status DC Lactobacillus Rhamnosus (Culturelle) 1 cap BID PO Last administered on 05/18/19at 20:37; Start 05/17/19 at 21:00 Losartan Potassium (Cozaar) 100 mg DAILY PO ; Start 05/19/19 at 09:00 Losartan Potassium (Cozaar) 50 mg 1X ONCE PO Last administered on 05/18/19at 11:56; Start 05/18/19 at 10:15; Stop 05/18/19 at 10:16; Status DC Zolpidem Tartrate (Ambien) 5 mg PRN QHS PRN PO INSOMNIA Last administered on 05/18/19at 20:37; Start 05/18/19 at 14:30 Active Scripts Active Reported Losartan Potassium 50 Mg Tablet 50 Mg PO DAILY Metoprolol Succinate ( Xl ) (Metoprolol Succinate) 100 Mg Tab.er.24h 1 Tab PO DAILY Triamterene-Hctz 37.5-25 Mg Tb (Triamterene/Hydrochlorothiazid) 1 Each Tablet 1 Tab PO DAILY Fluticasone Propionate Nasal [place] (Fluticasone Propionate) 16 Gm [place].susp 2 [place] NS DAILY Pravastatin Sodium 10 Mg Tablet 1 Tab PO QHS Vitals/I & O Vital Sign - Last 24 Hours 05/18/19 05/18/19 05/18/19 05/18/19 09:25 09:25 11:00 11:56 Temp 98.4 98.4 Pulse 110 110 121 110 Resp 16 B/P (MAP) 145/82 145/82 145/84 (104) 145/82 Pulse Ox 99 O2 Delivery Room Air 05/18/19 05/18/19 05/18/19 05/18/19 15:00 19:00 20:00 20:37 Temp 98.1 97.9 98.1 97.9 Pulse 100 100 100 Resp 18 18 B/P (MAP) 142/78 (99) 174/77 (109) 174/77 Pulse Ox 99 98 O2 Delivery Room Air Room Air Room Air 05/18/19 05/19/19 05/19/19 05/19/19 23:00 03:00 07:00 07:59 Temp 98.0 98.0 97.8 98.0 98.0 97.8 Pulse 120 116 71 Resp 18 18 16 B/P (MAP) 157/75 (102) 151/84 (106) 150/86 (107) Pulse Ox 97 97 99 O2 Delivery Room Air Room Air Room Air Room Air Intake and Output 05/18/19 05/18/19 05/19/19 14:59 22:59 06:59 Intake Total 50 ml Balance 50 ml DEMETRIUS BRADSHAW MD May 19, 2019 08:31
[2019-05-19] MEDS ORDERED: PANT40TA77 PO (08:34)
[2019-05-19] MEDS ORDERED: CIPR250T30 PO (08:34)
[2019-05-19] MEDS: LACTOBACILLUS RHAMNOSUS GG 1 CAPSULE. PO SCH (08:52)
[2019-05-19] MEDS: METOPROLOL SUCC 24HR ER 100 MG TAB.ER.24H. PO SCH (08:52)
[2019-05-19] MEDS: TRIAMTERENE/HCTZ 37.5/25MG TABLET. PO SCH (08:52)
[2019-05-19] MEDS: CIPROFLOXACIN 200MG PREMIX 100 ML IV SCH (08:54)
[2019-05-19] MEDS ORDERED: LOSARTAN POTASSIUM 50 MG TABLET. PO SCH (09:00)
[2019-05-19 11:00] VITALS: BP 124/58
--- NOTE | 2019-05-19 11:29 | NUR ---
Pt discharged home with self care. Discharge instructions and prescriptions discussed with daughter. Denied questions. Verbalized understanding. IV removed. DRU drain removed without complications. Dressing applied. Walker received and adjusted for pt height. Assisted pt to wheelchair. She was taken to ED entrance and secured in vehicle with daughter.
--- NOTE | 2019-05-19 14:54 | DS ---
DATE OF DISCHARGE: 05/19/2019 CHIEF COMPLAINT: Epigastric pain. HISTORY OF PRESENT ILLNESS: The patient is an 84-year-old female who presented to the Emergency Room with the above complaint. She reported having a several day history of increasing epigastric pain. She had decreased appetite due to this. Her pain worsened significantly and so she came to the Emergency Room. She was found to have evidence of a perforated viscus on the CT of the abdomen and pelvis. Dr. Falcon was consulted and the patient was admitted for further care. HOSPITAL COURSE: Dr. Falcon took the patient to the operating room on 05/13/2019 and performed a laparoscopic repair of a perforated gastric ulcer. The patient received routine postoperative care. Her diet was gradually advanced and she is now tolerating a regular diet with a good appetite and no epigastric pain. She was started on Protonix twice daily and this will be continued for 30 days. She was apparently taking a baby aspirin a day at home, although this does not appear at her home medication list. She may also have recently been taking some prednisone for treatment of arthritis. These appear to be her only risk factors for the ulcer as she denies taking any NSAID's. The patient has a long history of labile hypertension, which is made worse by any anxiety. She has been stable on her usual medications for this. Her blood pressure was intermittently elevated while she was hospitalized, but she is advised to continue her usual medications at home. She has a history of glucose intolerance. Her A1c was 6.6 on the hospital lab and she admits she had not been watching her diet very well. She will work on this and this will be followed as an outpatient. The patient had evidence of urinary tract infection at admission and was started on IV Cipro for treatment of this. Culture is now positive for 50,000-100,000 E. coli, which is sensitive to Cipro and she will be discharged home on oral Cipro to complete 5 days of treatment. The patient has been receiving physical and occupational therapy postoperatively and her mobility appears to be at her baseline. FINAL DIAGNOSES: 1. Perforated gastric ulcer. 2. Urinary tract infection. 3. Labile hypertension. 4. Hyperglycemia. DISCHARGE MEDICATIONS: Ciprofloxacin 250 mg b.i.d. x 2 days, pantoprazole 40 mg b.i.d. x 30 days, losartan 50 mg daily, Toprol-XL 100 mg daily, pravastatin 10 mg at bedtime, triamterene/hydrochlorothiazide 37.5/25 one daily. FOLLOWUP: Follow up is with Dr. Bradshaw within 2 weeks. DEMETRIUS BRADSHAW MD DR: MADHAVI/karina JOB#: [id number] / [id number] NOY
== END 2019-05-19 11:15 | disposition home or self-care (01) | DRG 326 ==
LOC: ER 05:05 → 4 NORTH 08:00
PROVIDERS: ADMIT Family Medicine; ATTEND Family Medicine
PROC: 0DU747Z Supplement Stomach, Pylorus with Autologous Tissue Substitute, Percutaneous Endoscopic Approach (ICD-10-PCS; principal; 2019-05-13 08:30)
DX: K25.5 Chronic or unspecified gastric ulcer with perforation (principal); K65.0 Generalized (acute) peritonitis; N17.9 Acute kidney failure, unspecified; N39.0 Urinary tract infection, site not specified; R65.10 Systemic inflammatory response syndrome (SIRS) of non-infectious origin without acute organ dysfunction; E44.0 Moderate protein-calorie malnutrition; K66.8 Other specified disorders of peritoneum; I12.9 Hypertensive chronic kidney disease with stage 1 through stage 4 chronic kidney disease, or unspecified chronic kidney disease; E11.22 Type 2 diabetes mellitus with diabetic chronic kidney disease; N18.9 Chronic kidney disease, unspecified; E11.65 Type 2 diabetes mellitus with hyperglycemia; M19.90 Unspecified osteoarthritis, unspecified site; E78.00 Pure hypercholesterolemia, unspecified; K21.9 Gastro-esophageal reflux disease without esophagitis; F41.9 Anxiety disorder, unspecified; E78.5 Hyperlipidemia, unspecified; B96.20 Unspecified Escherichia coli [E. coli] as the cause of diseases classified elsewhere; E89.0 Postprocedural hypothyroidism; Z90.710 Acquired absence of both cervix and uterus; Z79.82 Long term (current) use of aspirin; Z88.0 Allergy status to penicillin; Z79.899 Other long term (current) drug therapy; Z68.23 Body mass index [BMI] 23.0-23.9, adult
CPT/HCPCS: 36415; 71045; 71250; 74176; 80048; 80053; 80076; 81001; 83036; 83605; 83690; 83880; 84484; 85007; 85025; 85610; 85730; 87040; 87086; 87186; 93005; A7015; C9113; J0171; J0330; J0360; J0744; J1100; J1170; J1720; J2001; J2370; J2405; J2704; J2710; J3010; J3490; J7030; J7040; Q9968; 97110; 97116; 97530; 97535; 99285-25; G0378